=== PATIENT | male | born 1970 | race Caucasian/White ===

== ENCOUNTER 2016-05-01 01:50 | Observation (INO) | payer SELFPAY ==
[2016-05-01 01:55] VITALS: BMI 29.2
[2016-05-01] MEDS ORDERED: HYDROmorphone 0.5 mg/0.5 ml ISec IVP STA (01:56)
[2016-05-01] MEDS ORDERED: Sodium Chloride 0.9% 1,000 ML IV STA (01:57)
--- NOTE | 2016-05-01 02:25 | ED PDOC ---
Lower Extremity Pain/Injury Time Seen by Provider: 05/01/16 01:54 Chief Complaint (Nursing): Lower Extremity Problem/Injury Chief Complaint (Provider): left ankle pain deformity History Per: Patient, EMS History/Exam Limitations: no limitations Onset/Duration Of Symptoms: Hrs (1) Current Symptoms Are (Timing): Still Present Severity: Severe Pain Scale Rating Of: 10 Additional Complaint(s): Patient is a 45 yo male with no sig PMHx c/o acute left ankle pain after he rolled ankle and fell while doing pull ups. He applied his own Ortho boot from contralateral ankle that he had from previous injury. On arrival patient is in 10/10 pain to right ankle. - Hip Description Of Injury: Fell - Ankle/Foot Description Of Injury: Fell Currently Unable To: Bear Weight Past Medical History Reviewed: Historical Data, Nursing Documentation, Vital Signs Vital Signs: Last Vital Signs Temp 98.9 F 05/01/16 02:07 Pulse 121 H 05/01/16 02:07 Resp 14 05/01/16 02:07 BP 120/74 05/01/16 02:07 Pulse Ox 98 05/01/16 02:07 - Medical History PMH: Anxiety, COPD (from 10/18 work), Fractures (left ankle) Denies: Chronic Kidney Disease - Surgical History Surgical History: Cholecystectomy, Tonsillectomy - Family History Family History: States: CAD - Living Arrangements Living Arrangements: Alone - Social History Current smoker - smoking cessation education provided: No Ex-Smoker (has not smoked in the last 12 months): No Alcohol: None Drugs: Denies - Home Medications Home Medications: Ambulatory Orders Medication Instructions Recorded Azithromycin [Zithromax Z-Usama] 250 mg PO DAILY #6 tab 11/13/13 LORazepam [Ativan] 1 mg PO BID PRN #18 tab 01/29/14 Doxycycline Hyclate [Doxycycline] 100 mg PO BID #14 cap 04/19/14 Oxycodone HCl/Acetaminophen 1 tab PO Q4 PRN #15 tab 04/19/14 [Percocet 325 mg-5 mg] Ibuprofen [Motrin] 600 mg PO Q8 #30 tab 10/21/14 Oxycodone HCl/Acetaminophen 1 tab PO Q6 PRN #10 tab 10/21/14 [Percocet 325 mg-5 mg] Cyclobenzaprine HCl [Flexeril] 10 mg PO Q8 #15 tab 10/11/15 Naproxen [Naprosyn] 500 mg PO BID #20 tab 11/17/14 Naproxen 500 mg PO BID #20 tab 07/08/15 traMADol [Ultram] 50 mg PO Q6 #12 tab 05/01/16 - Allergies Allergies/Adverse Reactions: Allergies Allergy/AdvReac Type Severity Reaction Status Date / Time No Known Allergies Allergy Verified 07/08/15 22:16 Review of Systems ROS Statement: Except As Marked, All Systems Reviewed And Found Negative Musculoskeletal: Positive for: Foot Pain Physical Exam - Reviewed Nursing Documentation Reviewed: Yes Vital Signs Reviewed: Yes - Physical Exam Appears: Positive for: Uncomfortable Head Exam: Positive for: ATRAUMATIC, NORMOCEPHALIC Skin: Positive for: Normal Color, Warm, Dry Eye Exam: Positive for: Normal appearance, EOMI, PERRL Neck: Positive for: Normal, Painless ROM, Supple Cardiovascular/Chest: Positive for: Regular Rate, Rhythm. Negative for: Edema, JVD Respiratory: Positive for: Normal Breath Sounds. Negative for: Crackles, Rales , Wheezing Gastrointestinal/Abdominal: Positive for: Normal Exam, Bowel Sounds, Soft. Negative for: Tenderness Extremity: Positive for: Tenderness, Pedal Edema (left ankle is visibly deformed through Ortho boot straps; on removal pt noted to have sig malleolar edema and tenderness. Pt has 2+ DP pulses and cap refill <2 seconds to digits of left foot), Other (left infra-patellar abrasion noted) Neurologic/Psych: Positive for: Alert, Oriented. Negative for: Motor/Sensory Deficits - Laboratory Results Result Diagrams: 05/01/16 02:52 05/01/16 02:52 - ECG O2 Sat by Pulse Oximetry: 98 - Critical Care Total Time (In Min): 60 Medical Decision Making Medical Decision Makin yo male with acute ankle deformity Labs, Xray, IV Dilaudid ordered Podiatry consulted Xray Left Ankle shows distal fibular and lateral malleolar fracture with misalignment Podiatry consultation called; pt evaluated by Dr Schuler who has arranged for closed reduction with Dr Robbins (Podiatric Chief) Labs reviewed no clinically significant abnormalities Informed consent obtained by provider for moderate sedation; please refer to sedation documentation Provider supervised Podiatry residents reduction of ankle fracture and repeat Xrays showed improved joint alignment At 7AM pt is AAO x3 and po tolerant. Crutch ambulation instruction ordered prior to discharge DX Left Ankle Fracture Stable Pt provided instructions to f/u Dr Ronquillo for OR repair next week, RX Ultram Disposition - Clinical Impression Clinical Impression: Ankle fracture - Patient ED Disposition Is Patient to be Admitted: No - Disposition Disposition: Routine/Home Disposition Time: 03:10 Condition: FAIR ED Procedural Sedation - Pre Anesthesia Assessment Chief Complaint: Lower Extremity Problem/Injury Past Medical History: Medications Reviewed, Allergies Reviewed, Record Review Previous Surgies: Reviewed Family History/Social History: Reviewed - Physical Exam/Review of Systems Vital Signs Reviewed: Yes Cardiovascular: Regular Rate and Rhythm, Normal S1, S2 Respiratory/Chest: Clear to Auscultation Neurological: GCS=15 Mental Status: Alert and Oriented X 3 - Pre-Procedure Airway Assessment ASA Criteria: 1 - Healthy, normal. 2 - Mild systemic disease (No functional limitations, mildline obesity, DM withot complications, Hypertention). 3 - Severe systemic disease (Some functional limitation, stable angina, morbid obesity, controlled COPD/Asthma/CHF). 4 - Sever systemic disease constant threat to life (Unstable angina, active symptoms of COPD/Asthma, CHF/ Hypertension. 5 - Moribund - Intra-Procedure (Medications) Medications Given: Discontinued Medications Hydromorphone HCl (Dilaudid) 1 mg IVP STAT STA Stop: 05/01/16 01:57 Hydromorphone HCl (Dilaudid) Confirm Administered Dose 2 mg .ROUTE .STK-MED ONE Stop: 05/01/16 01:57 Hydromorphone HCl (Dilaudid) 1 mg IVP STAT STA Stop: 05/01/16 02:17 Last Admin: 05/01/16 02:20 Dose: 1 MG MAR Pain Assessment Document 05/01/16 02:20 WJ (Rec: 05/01/16 02:21 WJ [id number]) Pain Reassessment Is this a pain reassessment? Yes Sleep Is patient sleeping during reassessment? No Presence of Pain Presence of Pain Yes Pain Scale Used Pain Scale Used Numeric Location Left, Right or Bilateral Left Pain Location Body Site Ankle Description Description Constant IVP Administration Document 05/01/16 02:20 WJ (Rec: 05/01/16 02:21 WJ [id number]) Charges for Administration # of IVP Administrations 1 Hydromorphone HCl (Dilaudid) Confirm Administered Dose 2 mg .ROUTE .STK-MED ONE Stop: 05/01/16 02:20 Sodium Chloride (Sodium Chloride 0.9%) 1,000 mls @ 1,000 mls/hr IV .Q1H STA Stop: 05/01/16 02:56 Last Admin: 05/01/16 02:21 Dose: 1,000 MLS/HR eMAR Start Stop Document 05/01/16 02:21 W (Rec: 05/01/16 02:21 W [email or web address]) Intravenous Solution Start Date 05/01/16 Start Time 02:21 End Date 05/01/16 End time 05:00 Total Infusion Time 159 Midazolam HCl (Versed Inj) 10 mg IV ONCE ONE Stop: 05/01/16 03:21 Tetanus/Reduced Diphtheria/Acell Pertussis (Boostrix Vaccine Inj) 0.5 ml IM .ONCE ONE Stop: 05/01/16 03:02 Last Admin: 05/01/16 03:51 Dose: 0.5 ML MAR Immunization Data Document 05/01/16 03:51 W (Rec: 05/01/16 03:55 W [email or web address]) Immunization Data Opt out of sending immunization data to No respository? Suppress immunization data to other No providers from registry? Vaccine Eligibility Yes Vaccine Eligibility Date 05/01/16 Vaccine Information Sheet Given Yes Informed Consent Given Yes Vaccine Lot Number [id number] Vaccine Expiration Date 04/27/18 Site Given Left Deltoid Route Intramuscular Immunization Units ml Tetanus/Reduced Diphtheria/Acell Pertussis (Adacel) Confirm Administered Dose 0.5 ml IM .STK-MED ONE Stop: 05/01/16 03:46 Prod Sedation INTRA-PROCEDURE - Medications Medications Given: Discontinued Medications Hydromorphone HCl (Dilaudid) 1 mg IVP STAT STA Stop: 05/01/16 01:57 Hydromorphone HCl (Dilaudid) Confirm Administered Dose 2 mg .ROUTE .STK-MED ONE Stop: 05/01/16 01:57 Hydromorphone HCl (Dilaudid) 1 mg IVP STAT STA Stop: 05/01/16 02:17 Last Admin: 05/01/16 02:20 Dose: 1 MG MAR Pain Assessment Document 05/01/16 02:20 WJ (Rec: 05/01/16 02:21 W [email or web address]) Pain Reassessment Is this a pain reassessment? Yes Sleep Is patient sleeping during reassessment? No Presence of Pain Presence of Pain Yes Pain Scale Used Pain Scale Used Numeric Location Left, Right or Bilateral Left Pain Location Body Site Ankle Description Description Constant IVP Administration Document 05/01/16 02:20 W (Rec: 05/01/16 02:21 [id number] Charges for Administration # of IVP Administrations 1 Hydromorphone HCl (Dilaudid) Confirm Administered Dose 2 mg .ROUTE .STK-MED ONE Stop: 05/01/16 02:20 Sodium Chloride (Sodium Chloride 0.9%) 1,000 mls @ 1,000 mls/hr IV .Q1H STA Stop: 05/01/16 02:56 Last Admin: 05/01/16 02:21 Dose: 1,000 MLS/HR eMAR Start Stop Document 05/01/16 02:21 W (Rec: 05/01/16 02:21 [email or web address] [id number] Intravenous Solution Start Date 05/01/16 Start Time 02:21 End Date 05/01/16 End time 05:00 Total Infusion Time 159 Midazolam HCl (Versed Inj) 10 mg IV ONCE ONE Stop: 05/01/16 03:21 Tetanus/Reduced Diphtheria/Acell Pertussis (Boostrix Vaccine Inj) 0.5 ml IM .ONCE ONE Stop: 05/01/16 03:02 Last Admin: 05/01/16 03:51 Dose: 0.5 ML MAR Immunization Data Document 05/01/16 03:51 W (Rec: 05/01/16 03:55 [place] [id number]) Immunization Data Opt out of sending immunization data to No respository? Suppress immunization data to other No providers from registry? Vaccine Eligibility Yes Vaccine Eligibility Date 05/01/16 Vaccine Information Sheet Given Yes Informed Consent Given Yes Vaccine Lot Number [id number] Vaccine Expiration Date 04/27/18 Site Given Left Deltoid Route Intramuscular Immunization Units ml Tetanus/Reduced Diphtheria/Acell Pertussis (Adacel) Confirm Administered Dose 0.5 ml IM .STK-MED ONE Stop: 05/01/16 03:46 Vital Signs: 4:30AM Pt placed on ET CO2 monitor and given 4mg and additional 6mg IV Versed for moderate procedural sedation prior to closed reduction performed by Podiatry S[facility]. Posterior splint subsequently applied by Podiatry service. Pt tolerated procedure well.
[2016-05-01 02:55] LABS: BASO % 0.3 % (0.0-2.0); HEMATOCRIT 44.3 % (35.0-51.0); LYMPH # 1.2 K/uL (1.0-4.3); LYMPH % 10.1 % (20.0-40.0); MEAN CELL VOLUME 90.7 fl (80.0-94.0); MEAN CORPUSCULAR HEMOGLOBIN 29.7 pg (27.0-31.0); MEAN CORPUSCULAR HGB CONC 32.7 g/dL (33.0-37.0); MEAN PLATELET VOLUME 9.1 fl (7.2-11.7); MONO # 0.6 K/uL (0.0-0.8); NEUT # 9.9 K/uL (1.8-7.0); NEUT % 84.6 % (50.0-75.0); NRBC % 0.1 % (0.0-0.0); WHITE BLOOD COUNT 11.7 K/uL (4.8-10.8)
[2016-05-01] MEDS ORDERED: TDAP Vaccine 0.5 mL Syr IM ONE (03:01)
[2016-05-01 03:03] LABS: ALB/GLOB RATIO 1.8 (1.0-2.1); ALCOHOL SERUM < 10 mg/dl (0-10); ALKALINE PHOSPHATASE 72 U/L (38-126); ALT/SGPT 59 U/L (21-72); AST/SGOT 55 U/L (17-59); BILIRUBIN,TOTAL 0.5 mg/dl (0.2-1.3); BLOOD UREA NITROGEN 15 mg/dl (9-20); CALCIUM 9.9 mg/dL (8.4-10.2); CARBON DIOXIDE 17 mmol/L (22-30); CHLORIDE 101 mmol/L (98-107); GFR AFRICAN-AMERICAN > 60; GLUCOSE,RANDOM 109 mg/dL (75-110); POTASSIUM 4.2 MMOL/L (3.6-5.0); SODIUM 141 mmol/l (132-148)
[2016-05-01] MEDS ORDERED: Midazolam 2 MG/2 ML VIAL IV ONE (03:20)
[2016-05-01 03:34] LABS: PARTIAL THROMBOPLASTIN TIME 24.7 SECONDS (23.3-32.5)
--- NOTE | 2016-05-01 03:36 | CP.PCM.CON ---
History of Present Illness - History of Present Illness History of Present Illness: 45 year old male with PMHx of gallbladder cancer was seen at bedside in the ED for left ankle pain. Patient states that tonight, around 1 am, he was doing pull-up and landed on a dumb-wolff and rolled his ankle. Patient states that he tried to walk and it felt like bones hitting his skin. His director [employer] is Dr. Ronquillo whom he saw this week for an injury on the contralateral ankle. He is currently on pain medication, and states he feels very sleepy, but relates pain when he accidently moves his left leg. He was brought in by ambulance. Past Patient History - Past Social History Alcohol: None Drugs: Denies - CARDIAC Hx Cardiac Disorders: No - PULMONARY Hx Chronic Obstructive Pulmonary Disease (COPD): Yes (from 10/18 work) - NEUROLOGICAL Hx Neurological Disorder: No - HEENT Hx HEENT Problems: No - RENAL Hx Chronic Kidney Disease: No - ENDOCRINE/METABOLIC Hx Endocrine Disorders: No - HEMATOLOGICAL/ONCOLOGICAL Hx Cancer: Yes (gall bladder) Other/Comment: Cancer of gall bladder - INTEGUMENTARY Hx Dermatological Problems: No - MUSCULOSKELETAL/RHEUMATOLOGICAL Hx Fractures: Yes (left ankle) - GASTROINTESTINAL Hx Gastrointestinal Disorders: No - GENITOURINARY/GYNECOLOGICAL Hx Genitourinary Disorders: No - PSYCHIATRIC Hx Anxiety: Yes - SURGICAL HISTORY Hx Cholecystectomy: Yes Hx Tonsillectomy: Yes - ANESTHESIA Hx Anesthesia: Yes Hx Anesthesia Reactions: No Meds Home Medications: Home Medication List Medication Instructions Recorded Confirmed Type traMADol [Ultram] 50 mg PO Q6 #12 tab 05/01/16 Rx Allergies/Adverse Reactions: Allergies Allergy/AdvReac Type Severity Reaction Status Date / Time No Known Allergies Allergy Verified 07/08/15 22:16 Physical Exam - Constitutional Additional comments: uncomfortable - Extremities Exam Additional comments: Vasc: DP and PT pulses palpable on the right. DP pulse palpable and PT pulse non -palpable on the left due to non-pitting edema. CFT < 3 seconds to all digits b /l. Pedal hair growth noted b/l. Neuro: Gross sensation intact b/l. Ortho:Pain on palpation to medial malleolus, lateral malleolus, and ankle circumstantially. Derm:Non-pitting edema noted to left lower extremity from the calf to the digits. Ecchymosis noted to the medial malleolus. No open lesions noted - Neurological Exam Neurological exam: Alert, Oriented x3 - Psychiatric Exam Psychiatric exam: Normal Affect, Normal Mood Results - Vital Signs Recent Vital Signs: Last Vital Signs Temp 98.9 F 05/01/16 02:07 Pulse 121 H 05/01/16 02:07 Resp 14 05/01/16 02:07 BP 120/74 05/01/16 02:07 Pulse Ox 98 05/01/16 02:30 - Labs Result Diagrams: 05/01/16 02:52 05/01/16 02:52 Assessment & Plan - Assessment and Plan (Free Text) Assessment: 45 year old male with left ankle fracture Plan: Patient examined and evaluated Chart, labs, vitals reviewed Discussed in detail with attending, Dr. Ronquillo. Radiographs reviewed- high Fibular fracture, avulsion of the medial malleolus, syndesmotic injury noted Discussed with patient closed reduction procedure. Also discussed that patient will need surgery for the injury and will need to follow up with Dr. Ronquillo as outpatient. Consent for sedation obtained by ED attending, consent for closed reduction obtained and in chart, fiance present. Neurovascular status intact to LLE. Closed reduction was obtained to LLE and a well padded AO splint was applied after proper reduction was confirmed radiographically. Patient tolerated procedure well. Patient to ice and elevated LLE Patient to remain non-WB to LLE with dressing intact until follow up Pain medication per ED attending Discussed with patient and fiance that if he has pain out of proportion to call the podiatry pager and come to the ED Explained plan in detial with both patient and fiance, they verbalized understand. He understand that surgical intervention is necessary. Patient to follow up with Dr. Ronquillo in office this week
[2016-05-01 04:46] VITALS: TEMP 98.1
--- NOTE | 2016-05-01 08:28 | RAD ---
HISTORY: post reduction COMPARISON: No prior FINDINGS: BONES: Status post closed reduction of distal fibular and medial malleolar fracture. Cast obscures bone detail. JOINTS: Normal. No osteoarthritis. SOFT TISSUE: Normal. OTHER FINDINGS: None . IMPRESSION: Status post closed reduction of distal fibular and medial malleolar fracture. Cast obscures bone detail.
--- NOTE | 2016-05-01 08:28 | RAD ---
HISTORY: post reduction COMPARISON: No prior FINDINGS: BONES: Status post closed reduction of distal fibular and medial malleolar fracture in good anatomic alignment. Cast obscures bone detail. JOINTS: Normal. No osteoarthritis. SOFT TISSUE: Normal. OTHER FINDINGS: None . IMPRESSION: Status post closed reduction of distal fibular and medial malleolar fracture in good anatomic alignment. Cast obscures bone detail.
--- NOTE | 2016-05-01 08:29 | RAD ---
HISTORY: trauma COMPARISON: No prior FINDINGS: BONES: Distal fibular and medial malleolar fracture. JOINTS: Normal. No osteoarthritis. SOFT TISSUE: Normal. OTHER FINDINGS: None . IMPRESSION: Distal fibular and medial malleolar fracture.
[2016-05-01 09:16] VITALS: BP 116/70; PULSE 72; RESP 16
[2016-05-01 20:46] VITALS: O2SAT 98
== END 2016-05-01 08:20 | disposition home or self-care (01) ==
LOC: H.ER 01:50 → H.EROBSV 03:11
PROVIDERS: ADMIT Emergency Medicine; ATTEND Emergency Medicine
DX: S82.62XA Displaced fracture of lateral malleolus of left fibula, initial encounter for closed fracture (principal); W19.XXXA Unspecified fall, initial encounter; Y93.9 Activity, unspecified; Y92.9 Unspecified place or not applicable; Y99.9 Unspecified external cause status; Z85.09 Personal history of malignant neoplasm of other digestive organs; J44.9 Chronic obstructive pulmonary disease, unspecified; F41.9 Anxiety disorder, unspecified; Z90.49 Acquired absence of other specified parts of digestive tract; Z23 Encounter for immunization
CPT/HCPCS: 27762; 27788; 73590; 73600; 73620; 80053; 85025; 85610; 85730; 90471; 90715; 94770; 96361; 96374; 96375; 99284; G0378; G0480; J1170; J2250; J7040

== ENCOUNTER 2017-05-23 20:59 | Emergency (ER) | payer BC, OTHER ==
[2017-05-23 21:00] VITALS: BMI 29.2
[2017-05-23 21:09] VITALS: BP 111/74; PULSE 79; RESP 16; TEMP 98.7; O2SAT 99
--- NOTE | 2017-05-23 21:52 | ED PDOC ---
Lower Extremity Pain/Injury Time Seen by Provider: 05/23/17 21:13 Chief Complaint (Nursing): Lower Extremity Problem/Injury Chief Complaint (Provider): Lower Extremity Problem/Injury History Per: Patient History/Exam Limitations: no limitations Additional Complaint(s): Patient reports R ankle pain, swelling and redness. Patient reports feeling feverish a few days ago, but did not take his temperature. Denies any fever today or yesterday. Reports having prior injury to the left ankle that required surgery. Denies history of gout. Otherwise: (-) decreased ROM, (-)numbness, (- ) knee pain, (-) other injury. Patient is requesting for an MRI of his R ankle. PMD: Yaya Garcia MD Past Medical History Reviewed: Historical Data, Nursing Documentation, Vital Signs Vital Signs: Last Vital Signs Temp 98.7 F 05/23/17 21:05 Pulse 79 05/23/17 21:05 Resp 16 05/23/17 21:05 BP 111/74 05/23/17 21:05 Pulse Ox 99 05/23/17 21:05 - Medical History PMH: Anxiety, COPD (from 10/18 work), Fractures (left ankle) Denies: Chronic Kidney Disease - Surgical History Surgical History: Cholecystectomy, Tonsillectomy - Family History Family History: States: CAD - Home Medications Home Medications: Ambulatory Orders Medication Instructions Recorded Azithromycin [Zithromax Z-Usama] 250 mg PO DAILY #6 tab 11/13/13 LORazepam [Ativan] 1 mg PO BID PRN #18 tab 01/29/14 Doxycycline Hyclate [Doxycycline] 100 mg PO BID #14 cap 04/19/14 Oxycodone HCl/Acetaminophen 1 tab PO Q4 PRN #15 tab 04/19/14 [Percocet 325 mg-5 mg] Ibuprofen [Motrin] 600 mg PO Q8 #30 tab 10/21/14 Oxycodone HCl/Acetaminophen 1 tab PO Q6 PRN #10 tab 10/21/14 [Percocet 325 mg-5 mg] Cyclobenzaprine HCl [Flexeril] 10 mg PO Q8 #15 tab 11/17/14 Naproxen [Naprosyn] 500 mg PO BID #20 tab 11/17/14 Naproxen 500 mg PO BID #20 tab 07/08/15 traMADol [Ultram] 50 mg PO Q6 #12 tab 05/01/16 Cephalexin [Keflex] 500 mg PO Q6 #28 capsule 05/23/17 Indomethacin [Indocin] 50 mg PO TID PRN #15 cap 05/23/17 - Allergies Allergies/Adverse Reactions: Allergies Allergy/AdvReac Type Severity Reaction Status Date / Time No Known Allergies Allergy Verified 05/23/17 21:05 Review of Systems ROS Statement: Except As Marked, All Systems Reviewed And Found Negative (As per HPI, otherwise negative) Musculoskeletal: Positive for: Other (Ankle pain, swelling and redness) Physical Exam - Reviewed Nursing Documentation Reviewed: Yes Vital Signs Reviewed: Yes - Physical Exam Comments: GENERAL APPEARANCE: Patient is awake, alert, oriented x 3, in no acute distress. Patient observed freely moving his R ankle and foot, without any discomfort. SKIN: Warm, dry; (-) cyanosis. LOWER EXTREMITY: Ankle: (+) swelling, tenderness, warm to touch, with noted erythema. (+) full range of motion. Achilles tendon intact and nontender. Foot : (-) injury, (-) tender. CARDIOVASCULAR: (+) distal pulse. NEUROLOGIC: (+) distal sensation. - ECG O2 Sat by Pulse Oximetry: 99 (RA) Pulse Ox Interpretation: Normal Medical Decision Making Medical Decision Making: Time: 21:36 Plan: Right Ankle X-ray Keflex po Indocin po Case discussed with the pod resident Dr. Iesha Zavala, she agrees with current plan and treatment. Patient advised that an MRI is not clinically indicated at this time. XR right ankle: +soft tissue swelling to the posterior ankle, no fracture, no dislocation, as read by PA Patient advised that official radiology read of XR is still pending and will call the patient if there is any discrepancy within 24 hours. On reevaluation, the patient is sitting comfortably in the chair in no acute distress. Patient freely moving his right ankle and foot. X-ray results discussed with the patient in great detail. He is requesting for copies of his XR today. Patient provided with a copy on a CD. Diagnosis possible arthritis, consider gout versus infection discussed with the patient in great detail. Advised to follow-up with his dressmaker garment fitter. Patient states that he has a private dressmaker garment fitter and he intends to follow up regarding his symptoms. Based on history, exam and diagnostic results plan will be for outpatient follow-up with dressmaker garment fitter. Advised to follow up with your dressmaker garment fitter in 1-2 days without fail. Advised to take medication as prescribed. Rest, ice and elevate, wear riri wrap. Return to the emergency room at any time for any new or worsening symptoms. Patient states he fully agrees with and understands discharge instructions. States that he agrees with the plan and disposition. Verbalized and repeated discharge instructions and plan. I have given the patient opportunity to ask any additional questions. Scribe Attestation: Documented by Arlette Jacob acting as a scribe for PA. BETH Wood PA-C Scribe Attestation: All medical record entries made by the Scribe were at my direction and personally dictated by me. I have reviewed the chart and agree that the record accurately reflects my personal performance of the history, physical exam, medical decision making, and the department course for this patient. I have also personally directed, reviewed, and agree with the discharge instructions and disposition. Disposition - Clinical Impression Clinical Impression: Right ankle pain - Patient ED Disposition Is Patient to be Admitted: No Counseled Patient/Family Regarding: Studies Performed, Diagnosis, Need For Followup, Rx Given - Disposition Disposition: Routine/Home Disposition Time: 22:30 Condition: STABLE Additional Instructions: Thank you for letting us take care of you today. You were treated for right ankle pain, consider arthritis versus gout versus infection. The emergency medical care you received today was directed at your acute symptoms. Rest, ice and elevate your R ankle, continue to wear riri wrap for comfort and support. If you were prescribed any medication, please fill it and take as directed. It may take several days for your symptoms to resolve. Return to the Emergency Department if your symptoms worsen, do not improve, or if you have any other problems. Please contact your foot doctor in 2 days for re-evaluation and follow up. Bring any paperwork you were given at discharge with you along with any medications you are taking to your follow up visit. Our treatment cannot replace ongoing medical care by a primary care provider (PCP) outside of the emergency department. Thank you for allowing the [facility] team to be part of your care today. If you had an X-Ray : A Radiologist will review the ED reading if any change in treatment is needed we will contact you. Prescriptions: Cephalexin [Keflex] 500 mg PO Q6 #28 capsule Indomethacin [Indocin] 50 mg PO TID PRN #15 cap PRN Reason: Pain, Moderate (4-7) Instructions: Gout, Osteoarthritis (DC) Forms: [facility] (Khmer), [facility] ED School/Work Excuse - PA / SERVICE TECH / Resident Statement MD/DO has reviewed & agrees with the documentation as recorded.
--- NOTE | 2017-05-24 13:28 | RAD ---
PROCEDURE: Right Ankle Radiographs. HISTORY: Posttraumatic right lower extremity pain COMPARISON: None FINDINGS: BONES: Normal. No fracture. JOINTS: Normal. No osteoarthritis. Ankle mortise maintained. Talar dome intact SOFT TISSUES: Normal. OTHER FINDINGS: None. IMPRESSION: Normal right ankle radiographs.
== END 2017-05-23 23:00 | disposition home or self-care (01) ==
LOC: H.ER 20:59
DX: M25.571 Pain in right ankle and joints of right foot (principal); J44.9 Chronic obstructive pulmonary disease, unspecified; Z82.49 Family history of ischemic heart disease and other diseases of the circulatory system

== ENCOUNTER 2017-06-06 22:03 | Emergency (ER) | payer OTHER ==
[2017-06-06 22:03] VITALS: BMI 29.2
[2017-06-06 22:11] VITALS: BP 120/71; PULSE 80; RESP 18; TEMP 99.6; O2SAT 100
--- NOTE | 2017-06-06 23:49 | ED PDOC ---
Lower Extremity Pain/Injury Time Seen by Provider: 06/06/17 22:35 Chief Complaint (Nursing): Lower Extremity Problem/Injury History Per: Patient History/Exam Limitations: no limitations Additional Complaint(s): 46-year-old male presents to the emergency room complaining of bilateral knee pain and left ankle pain when he fell 4 days ago and sustained a twisting injury to his left ankle. Patient reports that he has been applying ice and elevating both his knees and his left ankle without improvement of his symptoms prompting ER visit. Reports no numbness, other injury, fever, other joint pain. Has no additional complaints or other injuries. Of note patient has had prior surgery to his left ankle. Past Medical History Vital Signs: Last Vital Signs Temp 99.6 F 06/06/17 22:09 Pulse 80 06/06/17 22:09 Resp 18 06/06/17 22:09 BP 120/71 06/06/17 22:09 Pulse Ox 100 06/06/17 22:09 - Medical History PMH: Anxiety, COPD (from 10/18 work), Fractures (left ankle) Denies: Chronic Kidney Disease - Surgical History Surgical History: Cholecystectomy, Tonsillectomy - Family History Family History: States: CAD - Home Medications Home Medications: Ambulatory Orders Medication Instructions Recorded Azithromycin [Zithromax Z-Usama] 250 mg PO DAILY #6 tab 11/13/13 LORazepam [Ativan] 1 mg PO BID PRN #18 tab 01/29/14 Doxycycline Hyclate [Doxycycline] 100 mg PO BID #14 cap 04/19/14 Oxycodone HCl/Acetaminophen 1 tab PO Q4 PRN #15 tab 04/19/14 [Percocet 325 mg-5 mg] Ibuprofen [Motrin] 600 mg PO Q8 #30 tab 10/21/14 Oxycodone HCl/Acetaminophen 1 tab PO Q6 PRN #10 tab 10/21/14 [Percocet 325 mg-5 mg] Cyclobenzaprine HCl [Flexeril] 10 mg PO Q8 #15 tab 11/17/14 Naproxen [Naprosyn] 500 mg PO BID #20 tab 11/17/14 Naproxen 500 mg PO BID #20 tab 07/08/15 traMADol [Ultram] 50 mg PO Q6 #12 tab 05/01/16 Cephalexin [Keflex] 500 mg PO Q6 #28 capsule 05/23/17 Indomethacin [Indocin] 50 mg PO TID PRN #15 cap 05/23/17 Meloxicam [Mobic] 15 mg PO DAILY PRN #20 tab 06/06/17 - Allergies Allergies/Adverse Reactions: Allergies Allergy/AdvReac Type Severity Reaction Status Date / Time No Known Allergies Allergy Verified 05/23/17 21:05 Review of Systems Constitutional: Negative for: Fever, Malaise Musculoskeletal: Positive for: Other (knee and ankle pain). Negative for: Neck Pain, Back Pain Skin: Negative for: Rash, Lesions Physical Exam - Physical Exam Comments: GENERAL APPEARANCE: Patient is awake, alert, oriented x 3, in mild painful distress. SKIN: Warm, dry; (-) cyanosis. LOWER EXTREMITY: B/L knees: Mild tenderness of b/l knees with no effusion. Able to extend actively to 0 degrees; (-) instability on valgus or varus stress. Drawer sign (-). (-) distal neurovascular deficit. 2 point discrimination. L ankle: (+) mild swelling, tenderness of the medial aspect of the ankle; (+) mild swelling and tenderness of the lateral ankle; (+) limited range of motion secondary to pain. Achilles tendon intact and nontender. Hip, thigh, leg and foot: (-) tenderness or limitation of motion. CARDIOVASCULAR: (+) distal pulse. NEUROLOGIC: (+) distal sensation. - ECG O2 Sat by Pulse Oximetry: 100 Medical Decision Making Medical Decision Making: Plan : - XR b/l knees - XR L ankle - Toradol IM XR bilateral knees: Soft tissue swelling noted to both knee joints, no fracture , no dislocation, as read by PA XR left ankle: Noted hardware screws, mild DJD, mild soft tissue swelling, no fracture, no dislocation, as read by PA Patient advised that official radiology read of XR is still pending and will call the patient if there is any discrepancy within 24 hours. X-ray results reviewed with her diet to resident Dr. Santos, she sees no acute fracture especially to the left ankle. She recommends outpatient follow-up with patient's private chemical inspector. X-ray results discussed with the patient in great detail. Recommended ice treatment at home. Harris wrap applied to bilateral knees and left ankle. Advised to follow up with private chemical inspector in 1-2 days without fail. Advised to take medication as prescribed. Return to the emergency room at any time for any new or worsening symptoms. Patient states he fully agrees with and understands discharge instructions. States that he agrees with the plan and disposition. Verbalized and repeated discharge instructions and plan. I have given the patient opportunity to ask any additional questions. Disposition - Clinical Impression Clinical Impression: Knee pain, Ankle sprain - Patient ED Disposition Is Patient to be Admitted: No Counseled Patient/Family Regarding: Studies Performed, Diagnosis, Need For Followup - Disposition Referrals: Edu Soriano III, MD [Staff Provider] - Disposition: Routine/Home Disposition Time: 00:00 Condition: STABLE Additional Instructions: Thank you for letting us take care of you today. You were treated for bilateral knee contusion, left ankle sprain. The emergency medical care you received today was directed at your acute symptoms. Rest, ice and elevate, wear harris wrap for comfort. It may take several days for your symptoms to resolve. Return to the Emergency Department if your symptoms worsen, do not improve, or if you have any other problems. Please contact your chemical inspector in 2 days for re-evaluation and follow up. Bring any paperwork you were given at discharge with you along with any medications you are taking to your follow up visit. Our treatment cannot replace ongoing medical care by a primary care provider (PCP) outside of the emergency department. Thank you for allowing the [facility] team to be part of your care today. If you had an X-Ray : A Radiologist will review the ED reading if any change in treatment is needed we will contact you. Prescriptions: Meloxicam [Mobic] 15 mg PO DAILY PRN #20 tab PRN Reason: Pain, Moderate (4-7) Instructions: Ankle Sprain (DC), Knee Pain (DC), Contusion (DC) - PA / BOOK JOGGER / Resident Statement MD/DO has reviewed & agrees with the documentation as recorded.
[2017-06-06] MEDS ORDERED: Oxycodone/Acetaminophen 5/325 mg Tab PO STA (23:57)
--- NOTE | 2017-06-07 08:58 | RAD ---
PROCEDURE: Bilateral Knee Radiographs. HISTORY: pain COMPARISON: None. FINDINGS: BONES: Right Knee: No acute fracture. Left Knee: No acute fracture. JOINTS: Right Knee: Unremarkable. Left knee: Unremarkable. SOFT TISSUES: Right Knee: Normal. Left Knee: Normal. JOINT EFFUSION: Right Knee: None. Left Knee: None. OTHER FINDINGS: None. IMPRESSION: No demonstrated fracture or dislocation.
--- NOTE | 2017-06-07 08:58 | RAD ---
PROCEDURE: Left Ankle Radiographs. HISTORY: pain COMPARISON: Left ankle radiographs dated 05/01/2016 FINDINGS: BONES: Prior open reduction internal placement of distal fibular fixation plate with syndesmotic screw and medial malleolar screw. Hardware intact. Small ossific fragments may represent heterotopic ossification versus avulsion fractures. JOINTS: Ankle mortise maintained. Talar dome intact SOFT TISSUES: Medial malleolar soft tissue swelling. Small ankle joint effusion. OTHER FINDINGS: None. IMPRESSION: Prior ORIF as described above. Small ossific fragments may represent heterotopic ossification versus avulsion fractures in the proper clinical setting. Clinical correlation is recommended. ER notification submitted electronically.
== END 2017-06-07 00:05 | disposition home or self-care (01) ==
LOC: H.ER 22:03
DX: S93.402A Sprain of unspecified ligament of left ankle, initial encounter (principal); M25.562 Pain in left knee; M25.561 Pain in right knee; W19.XXXA Unspecified fall, initial encounter; Z82.49 Family history of ischemic heart disease and other diseases of the circulatory system; J44.9 Chronic obstructive pulmonary disease, unspecified
CPT/HCPCS: 73560; 73610; 96372; 99285; J1885

== ENCOUNTER 2017-06-08 21:20 | Emergency (ER) | payer OTHER ==
[2017-06-08 21:21] VITALS: BMI 29.2
[2017-06-08 21:37] VITALS: BP 110/68; PULSE 69; RESP 16; TEMP 98.2; O2SAT 97
[2017-06-08] MEDS ORDERED: Oxycodone/Acetaminophen 5/325 mg Tab PO STA (21:47)
--- NOTE | 2017-06-08 22:27 | ED PDOC ---
Lower Extremity Pain/Injury Time Seen by Provider: 06/08/17 21:36 Chief Complaint (Nursing): Lower Extremity Problem/Injury History Per: Patient Additional Complaint(s): Pt. states he was in ED 2 days ago for a L ankle injury and was told to come in today for further imaging as there was a discrepancy in his x-ray. Pt. continues to have L ankle pain. Denies numbness, tingling. Past Medical History Reviewed: Historical Data, Nursing Documentation, Vital Signs Vital Signs: Last Vital Signs Temp 98.2 F 06/08/17 21:34 Pulse 69 06/08/17 21:34 Resp 16 06/08/17 21:34 BP 110/68 06/08/17 21:34 Pulse Ox 97 06/08/17 21:34 - Medical History PMH: Anxiety, COPD (from 10/18 work), Fractures (left ankle) Denies: Chronic Kidney Disease - Surgical History Surgical History: Cholecystectomy, Tonsillectomy - Family History Family History: States: CAD - Home Medications Home Medications: Ambulatory Orders Medication Instructions Recorded Azithromycin [Zithromax Z-Usama] 250 mg PO DAILY #6 tab 11/13/13 LORazepam [Ativan] 1 mg PO BID PRN #18 tab 01/29/14 Doxycycline Hyclate [Doxycycline] 100 mg PO BID #14 cap 04/19/14 Oxycodone HCl/Acetaminophen 1 tab PO Q4 PRN #15 tab 04/19/14 [Percocet 325 mg-5 mg] Ibuprofen [Motrin] 600 mg PO Q8 #30 tab 10/21/14 Oxycodone HCl/Acetaminophen 1 tab PO Q6 PRN #10 tab 10/21/14 [Percocet 325 mg-5 mg] Cyclobenzaprine HCl [Flexeril] 10 mg PO Q8 #15 tab 11/17/14 Naproxen [Naprosyn] 500 mg PO BID #20 tab 11/17/14 Naproxen 500 mg PO BID #20 tab 07/08/15 traMADol [Ultram] 50 mg PO Q6 #12 tab 05/01/16 Cephalexin [Keflex] 500 mg PO Q6 #28 capsule 05/23/17 Indomethacin [Indocin] 50 mg PO TID PRN #15 cap 05/23/17 Meloxicam [Mobic] 15 mg PO DAILY PRN #20 tab 06/06/17 oxyCODONE/Acetaminophen [Percocet 1 ea PO Q8 PRN #10 tab 06/08/17 5/325 mg Tab] - Allergies Allergies/Adverse Reactions: Allergies Allergy/AdvReac Type Severity Reaction Status Date / Time No Known Allergies Allergy Verified 06/08/17 21:34 Review of Systems ROS Statement: Except As Marked, All Systems Reviewed And Found Negative Physical Exam - Physical Exam Appears: Positive for: Well, Non-toxic, No Acute Distress Skin: Positive for: Normal Color, Warm. Negative for: Rash Pulses-Dorsalis Pedis (L): 2+ Pulses-Dorsalis Pedis (R): 2+ Extremity: Positive for: Other (L ankle on medial malleolus with swelling and tenderness) Neurologic/Psych: Positive for: Alert, Oriented - ECG O2 Sat by Pulse Oximetry: 97 - Progress ED Course And Treament: Percocet 2 tabs PO, CT L ankle/foot x-ray ordered. CT L ankle/foot w/o contrast: Soft tissue swelling at the ankle, a bulge in fracture from the medial talar neck cannot be excluded; old healed distal tibial and fibular fractures with orthopedic hardware in place Pt. evaluated by Roseanne, podiatry resident, who reviewed CT and spoke with Dr. Ronquillo. Outpt f/u arrangements made. Foot/ankle was immobilized in by Roseanne. Disposition - Clinical Impression Clinical Impression: Ankle fracture - Patient ED Disposition Is Patient to be Admitted: No - Disposition Referrals: Guero Ronquillo MD [Staff Provider] - Disposition: Routine/Home Disposition Time: 23:49 Condition: STABLE Additional Instructions: Follow up with Dr. Ronquillo as scheduled. Return to ED immediately if symptoms worsen. Prescriptions: oxyCODONE/Acetaminophen [Percocet 5/325 mg Tab] 1 ea PO Q8 PRN #10 tab PRN Reason: Pain Instructions: Ankle Fracture (DC) Forms: [employer] ([place]ran), [facility] ED School/Work Excuse Print Language: PORTUGUESE
--- NOTE | 2017-06-08 23:37 | CT ---
EXAM: CT Left Lower Extremity Without Intravenous Contrast EXAM DATE/TIME: 06/08/2017 9:47 PM CLINICAL HISTORY: 46 years old, male; Injury or trauma; Injury Injury in work; Work related; Initial encounter; Blunt trauma; Ankle and foot; Left; Prior surgery; Surgery date: 6+ months; Surgery type: Lt ankle FX. ; Additional info: Attention left ankle and foot TECHNIQUE: Axial computed tomography images of the left lower extremity without intravenous contrast. All CT scans at this facility use one or more dose reduction techniques, viz.: automated exposure control; ma/kV adjustment per patient size (including targeted exams where dose is matched to indication; i.e. head); or iterative reconstruction technique. Coronal and sagittal reformatted images were created and reviewed. COMPARISON: CR - ANKLE LEFT 3 VIEWS ROUTINE 2017-06-06 23:04 FINDINGS: Bones/joints: There are old healed distal tibial and fibular fractures. There is streak artifact from the sideplate and multiple screws in the distal fibula. There is streak artifact from screws in the distal tibia. There are postsurgical defect in the distal tibia and adjacent fibula from prior screw placement. There is streak artifact from a staple in the adjacent medial soft tissues. No acute tibial or fibular fractures are identified. There is dystrophic calcification posterior to the tibia. There is minimal dystrophic calcification in the region of the interosseous ligament.. There is minimal calcification in soft tissues anterior to the ankle joint. There is minimal cortical irregularity of the talar neck. There is small ossific fragments adjacent to the medial aspect. No focal abnormality is seen at the talonavicular articulation. Subtalar joints are maintained. Calcaneus is intact. No acute abnormalities are seen in the mid foot or hindfoot. Soft tissues: There is edema in the soft tissues at the left ankle. IMPRESSION: Soft tissue swelling at the ankle, a bulge in fracture from the medial talar neck cannot be excluded; old healed distal tibial and fibular fractures with orthopedic hardware in place
--- NOTE | 2017-06-08 23:40 | CP.PCM.CON ---
History of Present Illness - History of Present Illness History of Present Illness: 46 y/o male with PMHx of anxiety, COPD s/p 10/18 exposure and multiple injuries to L ankle seen in ED after consultation for L ankle pain. Pt is under Dr. Ronquillo's care and has a history of ankle ORIF and talus fractures to LLE. He states he came in yesterday to the ED as he recently sustained a new injury last week where his knees buckled and he inverted his ankle. He states he was sent home yesterday after his xrays came back negative, but was called in today after radiology indicated positive findings on the xray, warranting further imaging. States he is having pain on the inside of the ankle where he had screws put in approx 1 year ago after his fracture. States the pain also goes up from the inside of the ankle approx 5-6 cm. Admits to mild pain at the hardware sites on the inside and outside of the ankle, but states this is chronic. Admits to occasional tingling and numbness, more so on the inside of the ankle where he is currently having pain. States this is also chronic, but worsened since his injury last week. Has no other pedal complaints. Denies F/C/N /V/CP/SOB Review of Systems - Review of Systems All systems: reviewed and no additional remarkable complaints except (per HPI) Past Patient History - Past Social History Smoking Status: Never Smoked - CARDIAC Hx Cardiac Disorders: No - PULMONARY Hx Chronic Obstructive Pulmonary Disease (COPD): Yes (from 10/18 work) - NEUROLOGICAL Hx Neurological Disorder: No - HEENT Hx HEENT Problems: No - RENAL Hx Chronic Kidney Disease: No - ENDOCRINE/METABOLIC Hx Endocrine Disorders: No - HEMATOLOGICAL/ONCOLOGICAL Hx Cancer: Yes (gall bladder) Other/Comment: Cancer of gall bladder - INTEGUMENTARY Hx Dermatological Problems: No - MUSCULOSKELETAL/RHEUMATOLOGICAL Hx Fractures: Yes (left ankle) - GASTROINTESTINAL Hx Gastrointestinal Disorders: No - GENITOURINARY/GYNECOLOGICAL Hx Genitourinary Disorders: No - PSYCHIATRIC Hx Anxiety: Yes - SURGICAL HISTORY Hx Cholecystectomy: Yes Hx Tonsillectomy: Yes - ANESTHESIA Hx Anesthesia: Yes Hx Anesthesia Reactions: No Meds Home Medications: Home Medication List Medication Instructions Recorded Confirmed Type oxyCODONE/Acetaminophen [Percocet 1 ea PO Q8 PRN #10 tab 06/08/17 Rx 5/325 mg Tab] Allergies/Adverse Reactions: Allergies Allergy/AdvReac Type Severity Reaction Status Date / Time No Known Allergies Allergy Verified 06/08/17 21:34 Physical Exam - Constitutional Appears: Well, Non-toxic, No Acute Distress - Extremities Exam Additional comments: LLE focused exam: Vasc: DP/PT pulses palpable 2/4. Temperature gradient warm to cool. CFT < 3 sec to all digits. Mild localized perimalleolar edema noted Derm: Old surgical scars noted to medial malleolus and distal lateral fibula, fully healed. No open lesions, no erythema, no ecchymosis Neuro: Protective sensation grossly intact Ortho: Tenderness to deep palpation of medial malleolus at site of screw fixation. Mild tenderness along palpation of posterior tibial tendon at level of medial malleolus. Minimal pinpoint tenderness on palpation of lateral malleolus. Ankle joint ROM limited secondary to guarding. - Neurological Exam Neurological exam: Alert, Oriented x3 - Psychiatric Exam Psychiatric exam: Normal Affect, Normal Mood Results - Vital Signs Recent Vital Signs: Last Vital Signs Temp 98.2 F 06/08/17 21:34 Pulse 69 06/08/17 21:34 Resp 16 06/08/17 21:34 BP 110/68 06/08/17 21:34 Pulse Ox 97 06/08/17 22:29 Assessment & Plan - Assessment and Plan (Free Text) Assessment: 46 y/o male with left ankle injury secondary to trauma Plan: Pt seen and evaluated in ED Discussed with attending Dr. Ronquillo X-rays 06/06 of L ankle reveal ossicle vs avulsion fx of distal tibia at medial malleolus Left lower ext CT reveals a possible bulge in fx of medial talar neck, dystrophic calcifications posterior to tibia and in interosseous ligament, possible reactive bone growth at distal tibia at screw fixation site Pt placed in [place] compression and dispensed crutches Pt to ambulate in CAM boot at all times Pt advised to follow up with Dr. Ronquillo in his office for possible outpatient MRI to evaluate ligamentous and tendinous structures of rearfoot and ankle joints Thank you for this consult
== END 2017-06-08 23:49 | disposition home or self-care (01) ==
LOC: H.ER 21:20
DX: S99.912D Unspecified injury of left ankle, subsequent encounter (principal); J44.9 Chronic obstructive pulmonary disease, unspecified; Z82.49 Family history of ischemic heart disease and other diseases of the circulatory system; Z87.39 Personal history of other diseases of the musculoskeletal system and connective tissue

== ENCOUNTER 2017-09-20 21:57 | Inpatient (IN) | payer OTHER ==
[2017-09-20 21:58] VITALS: BMI 29.2
[2017-09-20] MEDS ORDERED: Oxycodone/Acetaminophen 5/325 mg Tab PO STA (22:44)
[2017-09-20 23:03] LABS: BASO % 0.4 % (0.0-2.0); EOS # 0.1 K/uL (0.0-0.7); EOS % 1.6 % (0.0-4.0); HEMOGLOBIN 16.3 g/dL (12.0-18.0); LYMPH # 1.4 K/uL (1.0-4.3); LYMPH % 16.3 % (20.0-40.0); MEAN CELL VOLUME 92.4 fl (80.0-94.0); MEAN CORPUSCULAR HEMOGLOBIN 30.9 pg (27.0-31.0); MEAN CORPUSCULAR HGB CONC 33.5 g/dL (33.0-37.0); MEAN PLATELET VOLUME 8.2 fl (7.2-11.7); MONO # 1.1 K/uL (0.0-0.8); NEUT # 5.7 K/uL (1.8-7.0); NEUT % 68.7 % (50.0-75.0); RBC 5.28 Mil/uL (4.40-5.90); WHITE BLOOD COUNT 8.3 K/uL (4.8-10.8)
[2017-09-20 23:09] LABS: VENOUS BLOOD GAS BASE EXCESS 2.8 mmol/L (0.0-2.0); VENOUS BLOOD GAS PCO2 47 mmHg (40-60); VENOUS BLOOD GAS PO2 34 mm/Hg (30-55); VENOUS BLOOD PH 7.39 (7.32-7.43)
[2017-09-20] MEDS ORDERED: Oxycodone/Acetaminophen 5/325 mg Tab ONE (23:10)
[2017-09-20 23:14] LABS: BLOOD UREA NITROGEN 18 mg/dl (9-20); CALCIUM 9.2 mg/dL (8.4-10.2); GFR AFRICAN-AMERICAN > 60; GFR NON-AFRICAN AMERICAN 55
--- NOTE | 2017-09-20 23:55 | ED PDOC ---
HPI: General Adult Time Seen by Provider: 09/20/17 22:24 Chief Complaint (Nursing): Fever History Per: Patient History/Exam Limitations: no limitations Onset/Duration Of Symptoms: Days Have you had recent travel within the past 21 days to any of the following countries: [place], [place], [place] or [place]?: No Current Symptoms Are (Timing): Still Present Additional Complaint(s): Hx of tibia/fibular fracture s/p repair with Dr. Ronquillo presenting with fever , states that Tuesday he had hardware removed from LLE and new hardware placed due to non-healing ligaments. Tuesday afternoon after the surgery he started to develop fever, has had it continuously since today to TMax of 105, associated with sweats and "halluncinations". Denies cough, runny nose, sore throat, nausea, vomiting, diarrhea. Patient states the lower extremity swelling has gotten better since the surgery. Past Medical History Reviewed: Historical Data, Nursing Documentation, Vital Signs Vital Signs: Last Vital Signs Temp 98.5 F 09/21/17 03:08 Pulse 80 09/21/17 03:08 Resp 18 09/21/17 03:08 BP 131/75 09/21/17 03:08 Pulse Ox 96 09/21/17 03:08 - Medical History PMH: Anxiety, COPD (from 10/18 work), Fractures (left ankle) Denies: Chronic Kidney Disease - Surgical History Surgical History: Cholecystectomy, Tonsillectomy - Family History Family History: States: CAD - Home Medications Home Medications: Ambulatory Orders Medication Instructions Recorded LORazepam [Ativan] 1 mg PO BID PRN #18 tab 01/29/14 Cyclobenzaprine HCl [Flexeril] 10 mg PO Q8 #15 tab 11/17/14 Naproxen [Naprosyn] 500 mg PO BID #20 tab 11/17/14 Cephalexin [Keflex] 500 mg PO Q6 #28 capsule 05/23/17 Oxycodone HCl/Acetaminophen 2 tab PO Q6 PRN 09/21/17 [Percocet 325 mg-5 mg] - Allergies Allergies/Adverse Reactions: Allergies Allergy/AdvReac Type Severity Reaction Status Date / Time No Known Allergies Allergy Verified 06/08/17 21:34 Review of Systems ROS Statement: Except As Marked, All Systems Reviewed And Found Negative Constitutional: Positive for: Fever, Chills, Sweats Physical Exam - Reviewed Nursing Documentation Reviewed: Yes Vital Signs Reviewed: Yes - Physical Exam Appears: Positive for: Well, Non-toxic, No Acute Distress Head Exam: Positive for: ATRAUMATIC, NORMAL INSPECTION, NORMOCEPHALIC Skin: Positive for: Normal Color, Warm, DRY Eye Exam: Positive for: EOMI, Normal appearance, PERRL ENT: Positive for: Normal ENT Inspection Neck: Positive for: Normal, Painless ROM Cardiovascular/Chest: Positive for: Regular Rate, Rhythm Respiratory: Positive for: CNT, Normal Breath Sounds Gastrointestinal/Abdominal: Positive for: Normal Exam, Soft. Negative for: Tenderness Back: Positive for: Normal Inspection Extremity: Positive for: Normal ROM, Other (LLE with mild swelling, well healing scars, no erythema/drainage, 2+ DP's) Neurologic/Psych: Positive for: Alert, Oriented - Laboratory Results Result Diagrams: 09/20/17 22:58 09/20/17 22:58 - ECG O2 Sat by Pulse Oximetry: 97 Pulse Ox Interpretation: Normal Medical Decision Making Medical Decision MakinPM A/P: Pt. w/ recent surgery presenting with fever and leg swelling -based on PE, site looks clean, well healing, unclear at this time if post-op wound infection -not concerned for DVT/PE at this time -will consult podiatry for further recs 1AM -Sepsis workup negative for source noni -Podiatry resident at bedside -Recommendation is to admit for pain control and further workup in the AM -Dr. Rudolph aware Disposition - Clinical Impression Clinical Impression: Fever - Patient ED Disposition Is Patient to be Admitted: No - Disposition Disposition Time: 01:00 Condition: FAIR
[2017-09-21] MEDS ORDERED: Sodium Chloride 0.9% 1,000 ML IV STA (00:54)
[2017-09-21 01:02] LABS: URINE BILIRUBIN NEGATIVE (NEGATIVE); URINE BLOOD MODERATE (NEGATIVE); URINE CLARITY CLEAR (Clear); URINE COLOR YELLOW (YELLOW); URINE GLUCOSE (UA) NEG (Normal); URINE LEUKOCYTE ESTERASE NEG Leu/uL (Negative); URINE PROTEIN NEGATIVE (NEGATIVE); URINE UROBILINOGEN 0.2-1.0 mg/dL (0.2-1.0)
--- NOTE | 2017-09-21 01:13 | CP.PCM.CON ---
History of Present Illness - History of Present Illness History of Present Illness: Podiatry consult note for attending Dr. Ronquillo: 47 y/o M patient seen and evaluated in ED for pain in his L ankle. Patient states that he had surgery last tuesday for removal of hardware from his left ankle at [facility] with Dr. Ronquillo. Patient states that since the surgery day he is having high fever 104-105 F that is not relieved by antipyretics. He states that he had pain 10/10 since the surgery day. Patient states that he used to take percocet 325/5 mg 2 tablets every 6 hours and that was helping him with the pain. He states that since Tuesday he started to take the percocet 1 tablet each 12 hours as he was afraid to ran out of the medication and also because it caused him constipation but that didn't help him with the pain. Patient states that he wasn't bear weight on his right foot and he was doing icing and elevation on regular basis. Patient states that he has continuous nausea but no vomiting. He also states that he is having body ache, chills and his appetite is lost in the last 5 days. Patient states that since he decreased the percocet dose his bowel motion became more regular and he passed stool and gases. PMH: Anxiety, COPD and gout PSH: Cholecystectomy, Tonsillectomy, B/L ankle surgeries and L knee surgery. Allergies: NKDA Social Hx: Denies smoking, ETOH or illicit drug use. Review of Systems - Review of Systems Review of Systems: As per HPI. Past Patient History - Past Social History Smoking Status: Never Smoked - CARDIAC Hx Cardiac Disorders: No - PULMONARY Hx Chronic Obstructive Pulmonary Disease (COPD): Yes (from 10/18 work) - NEUROLOGICAL Hx Neurological Disorder: No - HEENT Hx HEENT Problems: No - RENAL Hx Chronic Kidney Disease: No - ENDOCRINE/METABOLIC Hx Endocrine Disorders: No - HEMATOLOGICAL/ONCOLOGICAL Hx Cancer: Yes (gall bladder) Other/Comment: Cancer of gall bladder - INTEGUMENTARY Hx Dermatological Problems: No - MUSCULOSKELETAL/RHEUMATOLOGICAL Hx Fractures: Yes (left ankle) - GASTROINTESTINAL Hx Gastrointestinal Disorders: No - GENITOURINARY/GYNECOLOGICAL Hx Genitourinary Disorders: No - PSYCHIATRIC Hx Anxiety: Yes - SURGICAL HISTORY Hx Cholecystectomy: Yes Hx Tonsillectomy: Yes - ANESTHESIA Hx Anesthesia: Yes Hx Anesthesia Reactions: No Hx Malignant Hyperthermia: No Meds Allergies/Adverse Reactions: Allergies Allergy/AdvReac Type Severity Reaction Status Date / Time No Known Allergies Allergy Verified 06/08/17 21:34 - Medications Medications: Current Medications Sodium Chloride (Sodium Chloride 0.9%) 1,000 mls @ 1,000 mls/hr IV .Q1H STA Stop: 09/21/17 01:53 Last Admin: 09/21/17 01:00 Dose: 1,000 mls/hr Physical Exam - Head Exam Head Exam: ATRAUMATIC, NORMOCEPHALIC - Extremities Exam Additional comments: Left LE focused exam: Vasc: DP 2/4. PT couldn't be palpated because of the edema and guarding due to pain. Cap refill < 3 sec in all digits. Temp gradient warm to warm. moderate peimalleolar non pitting edema noted at the left ankle. Neuro: Protective and gross sensation are intact. Derm: 3 Linear wound of hardware removal surgery at the lateral side of the ankle and 2 smaller wounds at the medial side of the left ankle. Wounds are covered with steri strips Wounds are clean/ dry and intact. Sutures are intact and in place. Skin is perfectly coapted. No drainage or malodor. No erythema in the ezra-wound area. MSK: Pain on palpation of the perimalleolar area. Muscle power couldn;t be tested as the patient is guarding due to pain. Left foot and ankle joints ROM coudn't be tested due to pain. Dorsiflexion of the 1st MPJ didn't elicit any pain. - Neurological Exam Neurological exam: Alert, Oriented x3 - Psychiatric Exam Psychiatric exam: Normal Affect, Normal Mood Results - Vital Signs Recent Vital Signs: Last Vital Signs Temp 102.6 F H 09/20/17 22:15 Pulse 91 H 09/20/17 22:15 Resp 16 09/20/17 22:15 BP 136/82 09/20/17 22:15 Pulse Ox 97 09/20/17 23:58 - Labs Result Diagrams: 09/20/17 22:58 09/20/17 22:58 Labs: Laboratory Results - last 24 hr 09/20/17 09/20/17 09/20/17 22:58 22:58 23:03 WBC 8.3 RBC 5.28 Hgb 16.3 Hct 48.8 MCV 92.4 MCH 30.9 MCHC 33.5 RDW 14.0 Plt Count 247 MPV 8.2 Neut % (Auto) 68.7 Lymph % (Auto) 16.3 L [place] % (Auto) 13.0 H Eos % (Auto) 1.6 Baso % (Auto) 0.4 Neut # (Auto) 5.7 Lymph # (Auto) 1.4 [place] # (Auto) 1.1 H Eos # (Auto) 0.1 Baso # (Auto) 0.0 pO2 34 VBG pH 7.39 VBG pCO2 47 VBG HCO3 26.2 VBG Total CO2 29.9 H VBG O2 Sat (Calc) 66.5 H VBG Base Excess 2.8 H VBG Potassium 4.3 Glucose 95 Lactate 1.5 FiO2 21.0 Sodium 139 134.0 Potassium 4.4 Chloride 104 102.0 Carbon Dioxide 26 Anion Gap 13 BUN 18 Creatinine 1.4 Est GFR ( Amer) > 60 Est GFR (Non-Af Amer) 55 Random Glucose 101 Calcium 9.2 Venous Blood Potassium 4.3 Urine Color Urine Clarity Urine pH Ur Specific [place] Urine Protein Urine Glucose (UA) Urine Ketones Urine Blood Urine Nitrate Urine Bilirubin Urine Urobilinogen Ur Leukocyte Esterase Urine RBC (Auto) Urine Microscopic WBC 09/21/17 00:34 WBC RBC Hgb Hct MCV MCH MCHC RDW Plt Count MPV Neut % (Auto) Lymph % (Auto) [place] % (Auto) Eos % (Auto) Baso % (Auto) Neut # (Auto) Lymph # (Auto) [place] # (Auto) Eos # (Auto) Baso # (Auto) pO2 VBG pH VBG pCO2 VBG HCO3 VBG Total CO2 VBG O2 Sat (Calc) VBG Base Excess VBG Potassium Glucose Lactate FiO2 Sodium Potassium Chloride Carbon Dioxide Anion Gap BUN Creatinine Est GFR ( Amer) Est GFR (Non-Af Amer) Random Glucose Calcium Venous Blood Potassium Urine Color Yellow Urine Clarity Clear Urine pH 8.0 Ur Specific [place] 1.013 Urine Protein Negative Urine Glucose (UA) Neg Urine Ketones Negative Urine Blood Moderate Urine Nitrate Negative Urine Bilirubin Negative Urine Urobilinogen 0.2-1.0 Ur Leukocyte Esterase Neg Urine RBC (Auto) 1 Urine Microscopic WBC < 1 Assessment & Plan - Assessment and Plan (Free Text) Assessment: 47 Y/O M patient seen and evaluated in the ED for Left ankle pain 5 days S/P hardware removal of the left ankle. Plan: Patient seen and evaluated in the ED Plan discussed in details with attending Dr. Ronquillo. X-ray L ankle didn't show any sign of osteomyelitis, Soft tissue swelling S/P hardware removal surgery. Labs, Vitals and chart reviewed; Patient is febrile 102.6 F, WBCs 8.3. Ordered Venous duplex Left LE. Chest -ray and urine analysis are WNL. Blood culture sent to lab; pending. Patient to continue Keflex 500 mg tablets TID. Patient will continue to take the pain medications PRN. Discussed with the patient the need to be admitted for pain and fever control. Discussed with the patient that advanced imaging MRI might be considered in case that pain and fever aren't improved. Patient will be admitted to the hospital for fever and pain control. Podiatry will continue to follow up the patient while in house. - Date & Time Date: 09/21/17 Time: 01:09
[2017-09-21] MEDS: Oxycodone/Acetaminophen 5/325 mg Tab PO PRN ×3 (07:45→20:59)
[2017-09-21 07:58] LABS: BASO % 0.7 % (0.0-2.0); EOS # 0.2 K/uL (0.0-0.7); EOS % 3.1 % (0.0-4.0); HEMOGLOBIN 15.4 g/dL (12.0-18.0); LYMPH # 2.1 K/uL (1.0-4.3); LYMPH % 29.7 % (20.0-40.0); MEAN CELL VOLUME 91.5 fl (80.0-94.0); MEAN CORPUSCULAR HEMOGLOBIN 31.2 pg (27.0-31.0); MEAN CORPUSCULAR HGB CONC 34.1 g/dL (33.0-37.0); MEAN PLATELET VOLUME 8.3 fl (7.2-11.7); MONO # 1.2 K/uL (0.0-0.8); NEUT # 3.5 K/uL (1.8-7.0); NEUT % 49.5 % (50.0-75.0); NRBC % 0.1 % (0.0-0.0); RBC 4.93 Mil/uL (4.40-5.90); RED CELL DISTRIBUTION WIDTH 13.8 % (11.5-14.5); WHITE BLOOD COUNT 7.1 K/uL (4.8-10.8)
--- NOTE | 2017-09-21 08:02 | CP.PCM.HP ---
<Leah Clement - Last Filed: 09/21/17 13:50> History of Present Illness - History of Present Illness History of Present Illness: 47 yo M with hx anxiety and COPD, admitted for further workup of fever after procedure done Saturday 09/16. Patient states that he had surgery for removal of hardware from his left ankle at [facility] with Dr. Ronquillo, and that since that day he has been having high fevers, up to 105F. He states he and his thought their thermometer was broken, so they bought another one and it gave the same readings. Had taken tylenol, but states it did not help. He was sent home with prescription for Keflex, reports he took as prescribed. He was seen by podiatry in the ED, where he also relayed that he took 2 percocet 5-325 mg for pain every 6 hrs for 2 days, but since Tuesday has been taking 1 tab Q 12 hrs because he got constipated and was concerned he would run out of medication. Decreasing dose helped with constipation but not with pain. States he did not bear weight on his right foot and was icing and elevating extremity. ROS positive for body aches, chills, loss of appetite, Negative for chest pain, vomiting, cough. PMH: Anxiety, COPD PSH: Cholecystectomy, Tonsillectomy, tibia/fibular fracture repair x2 Social Hx: Denies smoking, ETOH or illicit drug use. Fam hx: noncontributory Allergies: NKDA Meds: flexeril, percocet Present on Admission - Present on Admission Any Indicators Present on Admission: No Review of Systems - Review of Systems Review of Systems: as per HPI Past Patient History - Past Medical History & Family History Past Medical History?: Yes - Past Social History Smoking Status: Never Smoked - CARDIAC Hx Cardiac Disorders: No - PULMONARY Hx Respiratory Disorders: Yes Hx Chronic Obstructive Pulmonary Disease (COPD): Yes (from 10/18 work) - NEUROLOGICAL Hx Neurological Disorder: No - HEENT Hx HEENT Problems: No - RENAL Hx Chronic Kidney Disease: No - ENDOCRINE/METABOLIC Hx Endocrine Disorders: No - HEMATOLOGICAL/ONCOLOGICAL Hx Blood Disorders: Yes Other/Comment: Cancer of gall bladder - INTEGUMENTARY Hx Dermatological Problems: No - MUSCULOSKELETAL/RHEUMATOLOGICAL Hx Musculoskeletal Disorders: Yes Hx Falls: Yes Hx Fractures: Yes (left ankle, left tibia/fibula) - GASTROINTESTINAL Hx Gastrointestinal Disorders: No - GENITOURINARY/GYNECOLOGICAL Hx Genitourinary Disorders: No - PSYCHIATRIC Hx Psychophysiologic Disorder: Yes Hx Anxiety: Yes - SURGICAL HISTORY Hx Surgeries: Yes Hx Cholecystectomy: Yes Hx Tonsillectomy: Yes Other/Comment: left tib/fib repair x2 - ANESTHESIA Hx Anesthesia: Yes Hx Anesthesia Reactions: No Hx Malignant Hyperthermia: No Meds Allergies/Adverse Reactions: Allergies Allergy/AdvReac Type Severity Reaction Status Date / Time No Known Allergies Allergy Verified 06/08/17 21:34 Physical Exam - Constitutional Appears: Non-toxic, No Acute Distress - Respiratory Exam Respiratory Exam: Clear to Auscultation Bilateral, NORMAL BREATHING PATTERN. absent: Respiratory Distress - Cardiovascular Exam Cardiovascular Exam: REGULAR RHYTHM, +S1, +S2 - GI/Abdominal Exam GI & Abdominal Exam: Normal Bowel Sounds, Soft - Extremities Exam Additional comments: LLE in wrap - Neurological Exam Neurological exam: Alert, Oriented x3 - Psychiatric Exam Psychiatric exam: Anxious - Skin Skin Exam: Warm Results - Vital Signs Recent Vital Signs: Last Vital Signs Temp 98.6 F 09/21/17 04:59 Pulse 72 09/21/17 06:31 Resp 18 09/21/17 06:31 BP 139/71 09/21/17 04:59 Pulse Ox 97 09/21/17 06:31 - Labs Result Diagrams: 09/21/17 07:37 09/21/17 07:37 Labs: Laboratory Results - last 24 hr 09/20/17 09/20/17 09/20/17 22:58 22:58 23:03 WBC 8.3 RBC 5.28 Hgb 16.3 Hct 48.8 MCV 92.4 MCH 30.9 MCHC 33.5 RDW 14.0 Plt Count 247 MPV 8.2 Neut % (Auto) 68.7 Lymph % (Auto) 16.3 L [place] % (Auto) 13.0 H Eos % (Auto) 1.6 Baso % (Auto) 0.4 Neut # (Auto) 5.7 Lymph # (Auto) 1.4 [place] # (Auto) 1.1 H Eos # (Auto) 0.1 Baso # (Auto) 0.0 pO2 34 VBG pH 7.39 VBG pCO2 47 VBG HCO3 26.2 VBG Total CO2 29.9 H VBG O2 Sat (Calc) 66.5 H VBG Base Excess 2.8 H VBG Potassium 4.3 Glucose 95 Lactate 1.5 FiO2 21.0 Sodium 139 134.0 Potassium 4.4 Chloride 104 102.0 Carbon Dioxide 26 Anion Gap 13 BUN 18 Creatinine 1.4 Est GFR ( Amer) > 60 Est GFR (Non-Af Amer) 55 Random Glucose 101 Calcium 9.2 Venous Blood Potassium 4.3 Urine Color Urine Clarity Urine pH Ur Specific [place] Urine Protein Urine Glucose (UA) Urine Ketones Urine Blood Urine Nitrate Urine Bilirubin Urine Urobilinogen Ur Leukocyte Esterase Urine RBC (Auto) Urine Microscopic WBC 09/21/17 00:34 WBC RBC Hgb Hct MCV MCH MCHC RDW Plt Count MPV Neut % (Auto) Lymph % (Auto) [place] % (Auto) Eos % (Auto) Baso % (Auto) Neut # (Auto) Lymph # (Auto) [place] # (Auto) Eos # (Auto) Baso # (Auto) pO2 VBG pH VBG pCO2 VBG HCO3 VBG Total CO2 VBG O2 Sat (Calc) VBG Base Excess VBG Potassium Glucose Lactate FiO2 Sodium Potassium Chloride Carbon Dioxide Anion Gap BUN Creatinine Est GFR ( Amer) Est GFR (Non-Af Amer) Random Glucose Calcium Venous Blood Potassium Urine Color Yellow Urine Clarity Clear Urine pH 8.0 Ur Specific [place] 1.013 Urine Protein Negative Urine Glucose (UA) Neg Urine Ketones Negative Urine Blood Moderate Urine Nitrate Negative Urine Bilirubin Negative Urine Urobilinogen 0.2-1.0 Ur Leukocyte Esterase Neg Urine RBC (Auto) 1 Urine Microscopic WBC < 1 Assessment & Plan - Assessment and Plan (Free Text) Assessment: 47 yo M with anxiety, recent left lower extremity surgery for removal of hardware with fevers. Vitals stable; had one elevated temp on arrival to ED, afebrile since then. Plan: - admitted to [facility] - pain control - monitor for fevers - zosyn, vancomycin - podiatry consulted - ID consult - regular diet - lovenox - rest of plan as ordered <Jagjit Rudolph - Last Filed: 09/23/17 06:49> Results - Vital Signs Recent Vital Signs: Last Vital Signs Temp 98.4 F 09/23/17 00:36 Pulse 75 09/23/17 00:36 Resp 18 09/23/17 00:36 BP 119/71 09/23/17 00:36 Pulse Ox 98 09/23/17 00:36 - Labs Result Diagrams: 09/22/17 05:55 09/22/17 05:55 Labs: Laboratory Results - last 24 hr 09/21/17 09/22/17 09/22/17 11:32 05:55 05:55 WBC 5.1 RBC 5.03 Hgb 15.6 Hct 46.5 MCV 92.4 MCH 31.1 H MCHC 33.7 RDW 13.9 Plt Count 219 MPV 8.3 Neut % (Auto) 45.2 L Lymph % (Auto) 34.0 [place] % (Auto) 15.8 H Eos % (Auto) 4.1 H Baso % (Auto) 0.9 Neut # (Auto) 2.3 Lymph # (Auto) 1.7 [place] # (Auto) 0.8 Eos # (Auto) 0.2 Baso # (Auto) 0.0 ESR 10 C-React Prot High Sens > 15.00 H Procalcitonin < 0.05 L Vancomycin Trough 09/22/17 05:55 WBC RBC Hgb Hct MCV MCH MCHC RDW Plt Count MPV Neut % (Auto) Lymph % (Auto) [place] % (Auto) Eos % (Auto) Baso % (Auto) Neut # (Auto) Lymph # (Auto) [place] # (Auto) Eos # (Auto) Baso # (Auto) ESR C-React Prot High Sens Procalcitonin Vancomycin Trough 8.0 Assessment & Plan - Assessment and Plan (Free Text) Plan: Patient was personally seen and examined by me in rounds with residents. Available labs and diagnostic data reviewed. Case, Patient's condition and management plan discussed with residents in rounds. Agree with resident's progress note. Plan: As ordered.
[2017-09-21 08:21] LABS: ALB/GLOB RATIO 1.5 (1.0-2.1); ALT/SGPT 41 U/L (21-72); AST/SGOT 41 U/L (17-59); BLOOD UREA NITROGEN 16 mg/dl (9-20); CALCIUM 8.8 mg/dL (8.4-10.2); GFR AFRICAN-AMERICAN > 60; GFR NON-AFRICAN AMERICAN > 60; HDL CHOLESTEROL 34 MG/DL (30-70)
[2017-09-21 08:31] LABS: LDL CHOLESTEROL 95 mg/dL (0-129)
--- NOTE | 2017-09-21 08:52 | RAD ---
Date of service: 09/20/2017 PROCEDURE: Left Ankle Radiographs. HISTORY: s/p surgery Arturo, fever COMPARISON: None FINDINGS: BONES: Prior orthopedic hardware residual tracts from its recent removal noted No interval fracture. JOINTS: Medial tibiotalar arthrosis -similar osteoarthritis. Ankle mortise maintained. Talar dome intact SOFT TISSUES: Mild soft tissue swelling OTHER FINDINGS: None. IMPRESSION: No interval periosteal reaction or gross cortical destruction seen to suggest osteomyelitis. Interval hardware removal
[2017-09-21] MEDS: Enoxaparin 40 mg Syringe SC SCH (09:31)
[2017-09-21] MEDS: Naproxen 500 MG TAB PO SCH ×2 (09:32→16:31)
[2017-09-21] MEDS: Piperacillin/Tazobact 3.375 GM in Sodium Chloride 0.9% 100 ML IVPB SCH ×2 (11:02→16:30)
--- NOTE | 2017-09-21 12:14 | CP.PCM.CON ---
History of Present Illness - History of Present Illness History of Present Illness: 47 yo M with hx anxiety and COPD, admitted for further workup of fever after procedure done Tuesday09/16/17 for removal of hardware left ankle . ID consulted for antibiotic management ROS positive for body aches, chills, loss of appetite, Negative for chest pain, vomiting, cough. PMH: Anxiety, COPD PSH: Cholecystectomy, Tonsillectomy, tibia/fibular fracture repair x2 multiple foot and ankle surgeries Social Hx: Denies smoking, ETOH or illicit drug use. Fam hx: noncontributory Allergies: NKDA Meds: flexeril, percocet Review of Systems - Review of Systems All systems: reviewed and no additional remarkable complaints except - Constitutional Constitutional: As Per HPI, Chills, Fever, Malaise - EENT Eyes: absent: As Per HPI, Blind Spots, Blurred Vision, Change in Vision, Decreased Night Vision, Diplopia, Discharge, Dry Eye, Exophthalmos, Floaters, Irritation, Itchy Eyes, Loss of Peripheral Vision, Pain, Photophobia, Requires Corrective Lenses, Sees Flashes, Spots in Vision, Tunnel Vision, Other Visual Disturbances, Loss of Vision, Other Ears: absent: As Per HPI, Decreased Hearing, Ear Discharge, Ear Pain, Tinnitus, Abnormal Hearing, Disequilibrium, Dizziness, Other Nose/Mouth/Throat: absent: As Per HPI, Epistaxis, Nasal Congestion, Nasal Discharge, Nasal Obstruction, Nasal Trauma, Nose Pain, Post Nasal Drip, Sinus Pain, Sinus Pressure, Bleeding Gums, Change in Voice, Dental Pain, Dry Mouth, Dysphagia, Halitosis, Hoarsness, Lip Swelling, Mouth Lesions, Mouth Pain, Odynophagia, Sore Throat, Throat Swelling, Tongue Swelling, Facial Pain, Neck Pain, Neck Mass, Other - Cardiovascular Cardiovascular: absent: As Per HPI, Acrocyanosis, Chest Pain, Chest Pain at Rest , Chest Pain with Activity, Claudication, Diaphoresis, Dyspnea, Dyspnea on Exertion, Edema, Irregular Heart Rhythm, Pain Radiating to Arm/Neck/Jaw, Leg Edema, Leg Ulcers, Lightheadedness, Orthopnea, Palpitations, Paroxysmal Nocturnal Dyspnea, Pedal Edema, Radiating Pain, Rapid Heart Rate, Slow Heart Rate, Syncope, Other - Respiratory Respiratory: absent: As Per HPI, Cough, Dyspnea, Hemoptysis, Dyspnea on Exertion , Wheezing, Snoring, Stridor, Pain on Inspiration, Chest Congestion, Excessive Mucous Production, Change in Mucous Color, Pain with Coughing, Other - Gastrointestinal Gastrointestinal: absent: As Per HPI, Abdominal Pain, Belching, Bloating, Change in Bowel Habits, Change in Stool Character, Coffee Ground Emesis, Constipation, Cramping, Diarrhea, Dyspepsia, Dysphagia, Early Satiety, Excessive Flatus, Fecal Incontinence, Heartburn, Hematemesis, Hematochezia, Loose Stools, Melena, Nausea, Odynophagia, Temesmus, Vomiting, Other - Genitourinary Genitourinary: absent: As Per HPI, Change in Urinary Stream, Difficulty Urinating, Dysuria, Flank Pain, Hematuria, Pyuria, Nocturia, Urinary Incontinence, Urinary Frequency, Urinary Hesitance, Urinary Urgency, Voiding Freq/Small Amts, Freq UTI, Hx Renal/Bladder Calculi, Hx /Renal Surgery, Bladder Distension, Other - Musculoskeletal Musculoskeletal: As Per HPI - Integumentary Integumentary: As Per HPI, Skin Pain, Wounds - Neurological Neurological: absent: As Per HPI, Abnormal Gait, Abnormal Hearing, Abnormal Movements, Abnormal Speech, Behavioral Changes, Burning Sensations, Confusion, Convulsions, Disequilibrium, Dizziness, Numbness, Focal Weakness, Frequent Falls , Headaches, Lack of Coordination, Loss of Vision, Memory Loss, Paresthesias, Radicular Pain, Restless Legs, Sensory Deficit, Syncope, Tingling, Tremor, Vertigo, Weakness, Other Visual Disturbances, Other - Psychiatric Psychiatric: absent: As Per HPI, Abnormal Sleep Pattern, Anhedonia, Anxiety, Auditory Hallucinations, Behavioral Changes, Change in Appetite, Change in Libido, Confusion, Depression, Difficulty Concentrating, Hallucinations, Homicidal Ideation, Hopelessness, Irritability, Memory Loss, Mood Swings, Panic Attacks, Paranoia, Suicidal Ideation, Visual Hallucinations, Tactile Hallucinations, Other - Endocrine Endocrine: absent: As Per HPI, Change in Body Appearance, Change in Libido, Cold Intolorance, Deepening of Voice, Excessive Sweating, Fatigue, Flushing, Heat Intolorance, Increase in Ring/Shoe/Hat Size, Palpitations, Polydipsia, Polyphagia, Polyuria, Other - Hematologic/Lymphatic Hematologic: absent: As Per HPI, Easy Bleeding, Easy Bruising, Lymphadenopathy, Other Past Patient History - Past Medical History & Family History Past Medical History?: Yes - Past Social History Smoking Status: Never Smoked - CARDIAC Hx Cardiac Disorders: No - PULMONARY Hx Respiratory Disorders: Yes Hx Chronic Obstructive Pulmonary Disease (COPD): Yes (from 10/18 work) - NEUROLOGICAL Hx Neurological Disorder: No - HEENT Hx HEENT Problems: No - RENAL Hx Chronic Kidney Disease: No - ENDOCRINE/METABOLIC Hx Endocrine Disorders: No - HEMATOLOGICAL/ONCOLOGICAL Hx Blood Disorders: Yes Other/Comment: Cancer of gall bladder - INTEGUMENTARY Hx Dermatological Problems: No - MUSCULOSKELETAL/RHEUMATOLOGICAL Hx Musculoskeletal Disorders: Yes Hx Falls: Yes Hx Fractures: Yes (left ankle, left tibia/fibula) - GASTROINTESTINAL Hx Gastrointestinal Disorders: No - GENITOURINARY/GYNECOLOGICAL Hx Genitourinary Disorders: No - PSYCHIATRIC Hx Psychophysiologic Disorder: Yes Hx Anxiety: Yes - SURGICAL HISTORY Hx Surgeries: Yes Hx Cholecystectomy: Yes Hx Tonsillectomy: Yes Other/Comment: left tib/fib repair x2 - ANESTHESIA Hx Anesthesia: Yes Hx Anesthesia Reactions: No Hx Malignant Hyperthermia: No Meds Allergies/Adverse Reactions: Allergies Allergy/AdvReac Type Severity Reaction Status Date / Time No Known Allergies Allergy Verified 06/08/17 21:34 - Medications Medications: Current Medications Cyclobenzaprine HCl (Flexeril) 10 mg PO Q8 [facility] Last Admin: 09/21/17 09:31 Dose: 10 mg Enoxaparin Sodium (Lovenox) 40 mg SC DAILY [facility] PRN Reason: Protocol Last Admin: 09/21/17 09:31 Dose: 40 mg Piperacillin Sod/Tazobactam (Sod 3.375 gm/ Sodium Chloride) 100 mls @ 100 mls/ hr IVPB Q8 [facility] PRN Reason: Protocol Last Admin: 09/21/17 11:02 Dose: 100 mls/hr Vancomycin HCl 1 gm/ Sodium (Chloride) 250 mls @ 166.667 mls/hr IVPB Q12 [facility] PRN Reason: Protocol Last Admin: 09/21/17 12:10 Dose: 166.667 mls/hr Lorazepam (Ativan) 1 mg PO BID PRN PRN Reason: Anxiety Morphine Sulfate (Morphine) 2 mg IVP Q4 PRN PRN Reason: severe pain (7-10) Last Admin: 09/21/17 09:30 Dose: 2 mg Naproxen (Naproxen) 500 mg PO BID [facility] Last Admin: 09/21/17 09:32 Dose: 500 mg Oxycodone/Acetaminophen (Percocet 5/325 Mg Tab) 2 tab PO Q6 PRN PRN Reason: Pain, moderate (4-7) Stop: 09/24/17 06:33 Last Admin: 09/21/17 07:45 Dose: 2 tab Physical Exam - Constitutional Appears: No Acute Distress, Chronically Ill - Head Exam Head Exam: ATRAUMATIC, NORMOCEPHALIC - Eye Exam Eye Exam: PERRL. absent: Scleral icterus - ENT Exam ENT Exam: Mucous Membranes Dry, Normal External Ear Exam - Neck Exam Neck exam: Negative for: Lymphadenopathy - Respiratory Exam Respiratory Exam: Decreased Breath Sounds, Clear to Auscultation Bilateral - Cardiovascular Exam Cardiovascular Exam: REGULAR RHYTHM, +S1, +S2 - GI/Abdominal Exam GI & Abdominal Exam: Diminished Bowel Sounds, Soft. absent: Tenderness - Rectal Exam Rectal Exam: Deferred - Exam Exam: NORMAL INSPECTION - Extremities Exam Extremities exam: Positive for: pedal edema, tenderness, pedal pulses present. Negative for: calf tenderness - Back Exam Back exam: absent: CVA tenderness (L), CVA tenderness (R), paraspinal tenderness - Neurological Exam Neurological exam: Alert, CN II-XII Intact, Oriented x3, Reflexes Normal - Psychiatric Exam Psychiatric exam: Normal Mood - Skin Skin Exam: Dry, Intact Results - Vital Signs Recent Vital Signs: Last Vital Signs Temp 98.6 F 09/21/17 08:21 Pulse 62 09/21/17 08:21 Resp 18 09/21/17 08:21 BP 127/71 09/21/17 08:21 Pulse Ox 99 09/21/17 08:21 - Labs Result Diagrams: 09/21/17 07:37 09/21/17 07:37 Labs: Laboratory Results - last 24 hr 09/20/17 09/20/17 09/20/17 22:58 22:58 23:03 WBC 8.3 RBC 5.28 Hgb 16.3 Hct 48.8 MCV 92.4 MCH 30.9 MCHC 33.5 RDW 14.0 Plt Count 247 MPV 8.2 Neut % (Auto) 68.7 Lymph % (Auto) 16.3 L [place] % (Auto) 13.0 H Eos % (Auto) 1.6 Baso % (Auto) 0.4 Neut # (Auto) 5.7 Lymph # (Auto) 1.4 Sutton # (Auto) 1.1 H Eos # (Auto) 0.1 Baso # (Auto) 0.0 pO2 34 VBG pH 7.39 VBG pCO2 47 VBG HCO3 26.2 VBG Total CO2 29.9 H VBG O2 Sat (Calc) 66.5 H VBG Base Excess 2.8 H VBG Potassium 4.3 Glucose 95 Lactate 1.5 FiO2 21.0 Sodium 139 134.0 Potassium 4.4 Chloride 104 102.0 Carbon Dioxide 26 Anion Gap 13 BUN 18 Creatinine 1.4 Est GFR ( Amer) > 60 Est GFR (Non-Af Amer) 55 Random Glucose 101 Calcium 9.2 Total Bilirubin AST ALT Alkaline Phosphatase Total Protein Albumin Globulin Albumin/Globulin Ratio Triglycerides Cholesterol LDL Cholesterol Direct HDL Cholesterol Vitamin B12 TSH 3rd Generation Venous Blood Potassium 4.3 Urine Color Urine Clarity Urine pH Ur Specific [place] Urine Protein Urine Glucose (UA) Urine Ketones Urine Blood Urine Nitrate Urine Bilirubin Urine Urobilinogen Ur Leukocyte Esterase Urine RBC (Auto) Urine Microscopic WBC 09/21/17 09/21/17 09/21/17 00:34 07:37 07:37 WBC 7.1 RBC 4.93 Hgb 15.4 Hct 45.1 MCV 91.5 MCH 31.2 H MCHC 34.1 RDW 13.8 Plt Count 242 MPV 8.3 Neut % (Auto) 49.5 L Lymph % (Auto) 29.7 Sutton % (Auto) 17.0 H Eos % (Auto) 3.1 Baso % (Auto) 0.7 Neut # (Auto) 3.5 Lymph # (Auto) 2.1 Sutton # (Auto) 1.2 H Eos # (Auto) 0.2 Baso # (Auto) 0.0 pO2 VBG pH VBG pCO2 VBG HCO3 VBG Total CO2 VBG O2 Sat (Calc) VBG Base Excess VBG Potassium Glucose Lactate FiO2 Sodium 138 Potassium 4.3 Chloride 106 Carbon Dioxide 24 Anion Gap 12 BUN 16 Creatinine 1.0 Est GFR ( Amer) > 60 Est GFR (Non-Af Amer) > 60 Random Glucose 94 Calcium 8.8 Total Bilirubin 0.8 AST 41 ALT 41 Alkaline Phosphatase 62 Total Protein 6.7 Albumin 4.0 Globulin 2.7 Albumin/Globulin Ratio 1.5 Triglycerides 107 Cholesterol 162 LDL Cholesterol Direct 95 HDL Cholesterol 34 Vitamin B12 620 TSH 3rd Generation 2.36 Venous Blood Potassium Urine Color Yellow Urine Clarity Clear Urine pH 8.0 Ur Specific [place] 1.013 Urine Protein Negative Urine Glucose (UA) Neg Urine Ketones Negative Urine Blood Moderate Urine Nitrate Negative Urine Bilirubin Negative Urine Urobilinogen 0.2-1.0 Ur Leukocyte Esterase Neg Urine RBC (Auto) 1 Urine Microscopic WBC < 1 Assessment & Plan (1) Fever Status: Acute (2) Ankle fracture Status: Acute - Assessment and Plan (Free Text) Assessment: fever post op s/p removal of hardware for tib-fib fx 1 yr ago r/o OM recommend imaging cultures may need further exploration cont iv antibiotics , wound care dvt prophylaxis
--- NOTE | 2017-09-21 13:16 | CP.PCM.PN ---
Subjective - Date & Time of Evaluation Date of Evaluation: 09/21/17 Time of Evaluation: 13:10 - Subjective Subjective: Podiatry progress note for Dr. Ronquillo: 47 yo male patient seen and evaluated at bedside for L ankle pain. Patient states he is feeling a little better today, however still had pain to his L ankle. His ankle is in 6/10 pain today. He continues to remain NWB to LLE with use of crutches. Patient notes that he had a follow up appointment with Dr. Ronquillo today in clinic, however he was admitted to the hospital. Patient states that they took off his posterior splint to do ultrasound of lower extremity. Patient denies V/F/SOB. Objective - Vital Signs/Intake and Output Vital Signs (last 24 hours): Temp Pulse Resp BP Pulse Ox 98.6 F 62 18 127/71 99 09/21/17 08:21 09/21/17 08:21 09/21/17 08:21 09/21/17 08:21 09/21/17 08:21 - Medications Medications: Current Medications Cyclobenzaprine HCl (Flexeril) 10 mg PO Q8 [facility] Last Admin: 09/21/17 09:31 Dose: 10 mg Enoxaparin Sodium (Lovenox) 40 mg SC DAILY [facility] PRN Reason: Protocol Last Admin: 09/21/17 09:31 Dose: 40 mg Piperacillin Sod/Tazobactam (Sod 3.375 gm/ Sodium Chloride) 100 mls @ 100 mls/ hr IVPB Q8 [facility] PRN Reason: Protocol Last Admin: 09/21/17 11:02 Dose: 100 mls/hr Vancomycin HCl 1 gm/ Sodium (Chloride) 250 mls @ 166.667 mls/hr IVPB Q12 [facility] PRN Reason: Protocol Last Admin: 09/21/17 12:10 Dose: 166.667 mls/hr Lorazepam (Ativan) 1 mg PO BID PRN PRN Reason: Anxiety Morphine Sulfate (Morphine) 2 mg IVP Q4 PRN PRN Reason: severe pain (7-10) Last Admin: 09/21/17 09:30 Dose: 2 mg Naproxen (Naproxen) 500 mg PO BID [facility] Last Admin: 09/21/17 09:32 Dose: 500 mg Oxycodone/Acetaminophen (Percocet 5/325 Mg Tab) 2 tab PO Q6 PRN PRN Reason: Pain, moderate (4-7) Stop: 09/24/17 06:33 Last Admin: 09/21/17 07:45 Dose: 2 tab - Labs Labs: 09/21/17 07:37 09/21/17 07:37 - Head Exam Head Exam: ATRAUMATIC, NORMOCEPHALIC - Extremities Exam Additional comments: LLE focused exam: Vasc: DP 2/4, PT 1/4. Cap refill < 3 sec in all digits. Temp gradient warm to warm. Brawny edema noted to medial and lateral malleoloar region Neuro: Gross and protective sensation intact Derm: Surgical site intact to medial and lateral ankle. Steri strips in place. Skin edges well coapted, no dehiscence, no malodor, no drainage, no erythema. Ortho: Pain on palpation of the perimalleolar area. - Neurological Exam Neurological Exam: Alert, Normal Gait, Oriented x3 - Psychiatric Exam Psychiatric exam: Normal Affect, Normal Mood Assessment and Plan - Assessment and Plan (Free Text) Assessment: 47 yo male patient seen and evaluated in the ED for Left ankle pain 5 days S/P hardware removal of the left ankle. Plan: Patient seen and evaluated with all questions and concerns addressed Discussed patient plan in detail with Dr. Ronquillo Chart, vitals, and labs reviewed; afebrile (98.6), absent leukocytosis (7.1) Surgical site dressed with DSD and Kerlix Posterior splint re-applied to left lower extremity Venous duplex ordered to r/o DVT; final report pending Will continue to follow patient while in house
--- NOTE | 2017-09-21 15:21 | RAD ---
Date of service: 09/20/2017 HISTORY: post op fever COMPARISON: 01/29/2014 FINDINGS: LUNGS: No active pulmonary disease. PLEURA: No significant pleural effusion identified, no pneumothorax apparent. CARDIOVASCULAR: Normal. OSSEOUS STRUCTURES: No significant abnormalities. VISUALIZED UPPER ABDOMEN: Normal. OTHER FINDINGS: None. IMPRESSION: No active disease. No interval pathology noted
--- NOTE | 2017-09-21 16:05 | US ---
Date of service: 09/21/2017 PROCEDURE: Left Lower Extremity Venous Duplex Exam. HISTORY: To R/O Left LE DVT. PRIORS: None. TECHNIQUE: Left common femoral, femoral, popliteal and posterior tibial, peroneal and great saphenous veins were evaluated. Flow was assessed with color Doppler, compressibility, assessment of phasic flow and augmentation response. Report prepared by radiation therapy technologist. FINDINGS: LEFT: 1. Common Femoral Vein: 1.1. Compressibility - Fully compressible: Thrombus - None : Flow - Phasic: Augmentation -Normal: Reflux - None. 2. Femoral Vein: 2.1. Compressibility - Fully compressible: Thrombus - None: Flow - Phasic: Augmentation -Normal: Reflux - None. 3. Popliteal Vein: 3.1. Compressibility - Fully compressible: Thrombus - None: Flow - Phasic: Augmentation -Normal: Reflux - None. 4. Posterior Tibial Vein: 4.1. Compressibility - Fully compressible: Thrombus - None: Flow - Phasic: Augmentation -Normal: Reflux - None. 5. Peroneal Vein: 5.1. Compressibility - Fully compressible: Thrombus - None: Flow - Phasic: Augmentation -Normal: Reflux - None. 6. Great Saphenous Vein: 6.1. Compressibility - Fully compressible: Thrombus - None: Flow - Phasic: Augmentation - Normal: Reflux - None. OTHER FINDINGS: Mildly enlarged left groin lymph node is noted measures 2.2 x 1.1 centimeter. IMPRESSION: No evidence of deep vein thrombosis of the left lower extremity with excellent venous flow.
[2017-09-22] MEDS: Piperacillin/Tazobact 3.375 GM in Sodium Chloride 0.9% 100 ML IVPB SCH ×3 (00:35→16:37)
[2017-09-22 06:33] LABS: BASO % 0.9 % (0.0-2.0); EOS # 0.2 K/uL (0.0-0.7); EOS % 4.1 % (0.0-4.0); HEMOGLOBIN 15.6 g/dL (12.0-18.0); LYMPH # 1.7 K/uL (1.0-4.3); MEAN CELL VOLUME 92.4 fl (80.0-94.0); MEAN CORPUSCULAR HEMOGLOBIN 31.1 pg (27.0-31.0); MEAN CORPUSCULAR HGB CONC 33.7 g/dL (33.0-37.0); MEAN PLATELET VOLUME 8.3 fl (7.2-11.7); MONO # 0.8 K/uL (0.0-0.8); MONO % 15.8 % (0.0-10.0); NEUT # 2.3 K/uL (1.8-7.0); NEUT % 45.2 % (50.0-75.0); NRBC % 0.2 % (0.0-0.0); RBC 5.03 Mil/uL (4.40-5.90); RED CELL DISTRIBUTION WIDTH 13.9 % (11.5-14.5); WHITE BLOOD COUNT 5.1 K/uL (4.8-10.8)
[2017-09-22 06:38] LABS: ALB/GLOB RATIO 1.5 (1.0-2.1); ALBUMIN 3.9 g/dL (3.5-5.0); ALT/SGPT 33 U/L (21-72); AST/SGOT 35 U/L (17-59); BLOOD UREA NITROGEN 17 mg/dl (9-20); GFR AFRICAN-AMERICAN > 60; GFR NON-AFRICAN AMERICAN > 60
--- NOTE | 2017-09-22 07:36 | CP.PCM.PN ---
Subjective - Date & Time of Evaluation Date of Evaluation: 09/22/17 Time of Evaluation: 07:34 - Subjective Subjective: Podiatry progress note for Dr. Ronquillo: 47 yo male patient seen and evaluated at bedside for L ankle pain. Patient states he is feeling a little better today, however still had pain to his L ankle. His ankle is in 6/10 pain today. He continues to remain NWB to LLE with use of crutches. Patient states Dr. Rudolph has told him he will remain in the hospital for a few more days for IV antibiotics. Patient denies V/F/SOB. Objective - Vital Signs/Intake and Output Vital Signs (last 24 hours): Temp Pulse Resp BP Pulse Ox 98.1 F 72 18 118/64 98 09/22/17 01:00 09/22/17 01:00 09/22/17 01:00 09/22/17 01:00 09/22/17 01:00 - Medications Medications: Current Medications Cyclobenzaprine HCl (Flexeril) 10 mg PO Q8 [facility] Last Admin: 09/22/17 00:35 Dose: 10 mg Enoxaparin Sodium (Lovenox) 40 mg SC DAILY [facility] PRN Reason: Protocol Last Admin: 09/21/17 09:31 Dose: 40 mg Piperacillin Sod/Tazobactam (Sod 3.375 gm/ Sodium Chloride) 100 mls @ 100 mls/ hr IVPB Q8 [facility] PRN Reason: Protocol Last Admin: 09/22/17 00:35 Dose: 100 mls/hr Vancomycin HCl 1 gm/ Sodium (Chloride) 250 mls @ 166.667 mls/hr IVPB Q12 [facility] PRN Reason: Protocol Last Admin: 09/21/17 20:35 Dose: 166.667 mls/hr Lorazepam (Ativan) 1 mg PO BID PRN PRN Reason: Anxiety Morphine Sulfate (Morphine) 2 mg IVP Q4 PRN PRN Reason: severe pain (7-10) Last Admin: 09/22/17 07:00 Dose: 2 mg Naproxen (Naproxen) 500 mg PO BID [facility] Last Admin: 09/21/17 16:31 Dose: 500 mg Oxycodone/Acetaminophen (Percocet 5/325 Mg Tab) 2 tab PO Q6 PRN PRN Reason: Pain, moderate (4-7) Stop: 09/24/17 06:33 Last Admin: 09/21/17 20:59 Dose: 2 tab - Labs Labs: 09/21/17 07:37 09/22/17 05:55 - Constitutional Appears: Well, Non-toxic, No Acute Distress - Head Exam Head Exam: ATRAUMATIC, NORMOCEPHALIC - Extremities Exam Additional comments: LLE focused exam: Dressing clean dry intact, CFT <3 secs x10. - Neurological Exam Neurological Exam: Alert, Awake, Oriented x3 - Psychiatric Exam Psychiatric exam: Normal Affect, Normal Mood Assessment and Plan - Assessment and Plan (Free Text) Assessment: 47 yo male patient seen and evaluated in the ED for Left ankle pain 5 days S/P hardware removal of the left ankle. Plan: Patient seen and evaluated with all questions and concerns addressed Discussed patient plan in detail with Dr. Ronquillo Chart, vitals, and labs reviewed; afebrile (98.1), absent leukocytosis (7.1) Surgical site dressed with DSD and Kerlix Posterior splint clean, dry and intact. Venous duplex: no DVT Patient stable from podiatry point of view; patient will follow up with Dr Ronquillo in his office within a week of discharge Podiatry will continue to follow patient while in house
--- NOTE | 2017-09-22 07:53 | CP.PCM.PN ---
Subjective - Date & Time of Evaluation Date of Evaluation: 09/22/17 Time of Evaluation: 07:53 - Subjective Subjective: 47 y/o M reports feeling better. Pt afebrile overnight. Pt is tolerating PO, no acute events overnight. Pt reports his desire to go home. Objective - Vital Signs/Intake and Output Vital Signs (last 24 hours): Temp Pulse Resp BP Pulse Ox 98.1 F 72 18 118/64 98 09/22/17 01:00 09/22/17 01:00 09/22/17 01:00 09/22/17 01:00 09/22/17 01:00 - Medications Medications: Current Medications Cyclobenzaprine HCl (Flexeril) 10 mg PO Q8 [facility] Last Admin: 09/22/17 00:35 Dose: 10 mg Enoxaparin Sodium (Lovenox) 40 mg SC DAILY [facility] PRN Reason: Protocol Last Admin: 09/21/17 09:31 Dose: 40 mg Piperacillin Sod/Tazobactam (Sod 3.375 gm/ Sodium Chloride) 100 mls @ 100 mls/ hr IVPB Q8 [facility] PRN Reason: Protocol Last Admin: 09/22/17 00:35 Dose: 100 mls/hr Vancomycin HCl 1 gm/ Sodium (Chloride) 250 mls @ 166.667 mls/hr IVPB Q12 [facility] PRN Reason: Protocol Last Admin: 09/21/17 20:35 Dose: 166.667 mls/hr Lorazepam (Ativan) 1 mg PO BID PRN PRN Reason: Anxiety Morphine Sulfate (Morphine) 2 mg IVP Q4 PRN PRN Reason: severe pain (7-10) Last Admin: 09/22/17 07:00 Dose: 2 mg Naproxen (Naproxen) 500 mg PO BID [facility] Last Admin: 09/21/17 16:31 Dose: 500 mg Oxycodone/Acetaminophen (Percocet 5/325 Mg Tab) 2 tab PO Q6 PRN PRN Reason: Pain, moderate (4-7) Stop: 09/24/17 06:33 Last Admin: 09/21/17 20:59 Dose: 2 tab - Labs Labs: 09/22/17 05:55 09/22/17 05:55 - Constitutional Appears: Well, No Acute Distress - Head Exam Head Exam: ATRAUMATIC, NORMAL INSPECTION - Eye Exam Eye Exam: EOMI, Normal appearance Pupil Exam: PERRL - ENT Exam ENT Exam: Mucous Membranes Moist - Neck Exam Neck Exam: Full ROM, Normal Inspection - Respiratory Exam Respiratory Exam: Clear to Ausculation Bilateral, NORMAL BREATHING PATTERN - Cardiovascular Exam Cardiovascular Exam: REGULAR RHYTHM, +S1, +S2 - GI/Abdominal Exam GI & Abdominal Exam: Soft. absent: Guarding, Tenderness - Extremities Exam Additional comments: Left lower leg and foot: presence of cast, able to move toes, SILT. Assessment and Plan - Assessment and Plan (Free Text) Assessment: 47 yo M S/P L ankle removal of hardware surgical procedure admitted for evaluation of high fever immediately after surgery. Considering osteomyelitis. --Stable --Antibiotic treatment recommended for 6 weeks. --PICC line placement ordered. --On Zosyn adn Vancomycin. --ID, Dr Marques, on board. F/U recommendations --Regular diet. --Lovenox for DVT prophylaxis. --Rest of plan as ordered.
[2017-09-22] MEDS: Oxycodone/Acetaminophen 5/325 mg Tab PO PRN (09:12)
[2017-09-22] MEDS: Enoxaparin 40 mg Syringe SC SCH (09:15)
[2017-09-22] MEDS: Naproxen 500 MG TAB PO SCH ×2 (09:15→16:37)
[2017-09-22] MEDS ORDERED: Lidocaine 1% 5ml Abboject IV ONE (13:12)
--- NOTE | 2017-09-22 14:18 | PCM.SURG1 ---
Surgeon's Initial Post Op Note - Surgeon's Notes Surgeon: Jessi Freight Sorter: None Type of Anesthesia: Local Pre-Operative Diagnosis: Infection Operative Findings: Patent right basilic vein Post-Operative Diagnosis: Infection Operation Performed: Right baslilic vein 4F SL 37cm PICC placed with the tip in the RA/SVC junction. Specimen/Specimens Removed: None Estimated Blood Loss: EBL {In ML}: 1 Blood Products Given: N/A Drains Used: No Drains Post-Op Condition: Good Date of Surgery/Procedure: 09/22/17 Time of Surgery/Procedure: 14:05
--- NOTE | 2017-09-22 18:03 | CP.PCM.PN ---
Subjective - Date & Time of Evaluation Date of Evaluation: 09/22/17 Time of Evaluation: 09:00 - Subjective Subjective: admitted with left ankle pain and fever 5 days after removal of hardware which was planned and not done due to infection fever has resolved and x rays are neg for OM Objective - Vital Signs/Intake and Output Vital Signs (last 24 hours): Temp Pulse Resp BP Pulse Ox 98.4 F 70 18 121/73 99 09/22/17 16:07 09/22/17 16:07 09/22/17 16:07 09/22/17 16:07 09/22/17 16:07 - Medications Medications: Current Medications Cyclobenzaprine HCl (Flexeril) 10 mg PO Q8 [facility] Last Admin: 09/22/17 16:37 Dose: 10 mg Enoxaparin Sodium (Lovenox) 40 mg SC DAILY [facility] PRN Reason: Protocol Last Admin: 09/22/17 09:15 Dose: 40 mg Piperacillin Sod/Tazobactam (Sod 3.375 gm/ Sodium Chloride) 100 mls @ 100 mls/ hr IVPB Q8 [facility] PRN Reason: Protocol Last Admin: 09/22/17 16:37 Dose: 100 mls/hr Vancomycin HCl 1 gm/ Sodium (Chloride) 250 mls @ 166.667 mls/hr IVPB Q12 [facility] PRN Reason: Protocol Last Admin: 09/22/17 12:07 Dose: 166.667 mls/hr Lorazepam (Ativan) 1 mg PO BID PRN PRN Reason: Anxiety Morphine Sulfate (Morphine) 2 mg IVP Q4 PRN PRN Reason: severe pain (7-10) Last Admin: 09/22/17 15:03 Dose: 2 mg Naproxen (Naproxen) 500 mg PO BID [facility] Last Admin: 09/22/17 16:37 Dose: 500 mg Oxycodone/Acetaminophen (Percocet 5/325 Mg Tab) 2 tab PO Q6 PRN PRN Reason: Pain, moderate (4-7) Stop: 09/24/17 06:33 Last Admin: 09/22/17 09:12 Dose: 2 tab - Labs Labs: 09/22/17 05:55 09/22/17 05:55 - Constitutional Appears: Non-toxic, Chronically Ill - Head Exam Head Exam: NORMOCEPHALIC - Eye Exam Eye Exam: PERRL - ENT Exam ENT Exam: Mucous Membranes Dry - Neck Exam Neck Exam: absent: Lymphadenopathy - Respiratory Exam Respiratory Exam: Decreased Breath Sounds - Cardiovascular Exam Cardiovascular Exam: REGULAR RHYTHM - GI/Abdominal Exam GI & Abdominal Exam: Distended - Rectal Exam Rectal Exam: Deferred - Exam Exam: NORMAL INSPECTION - Extremities Exam Extremities Exam: absent: Calf Tenderness, Tenderness Additional comments: dressing C/D /I - Back Exam Back Exam: absent: CVA tenderness (L), CVA tenderness (R) - Neurological Exam Neurological Exam: Alert, Awake, CN II-XII Intact, Oriented x3 - Psychiatric Exam Psychiatric exam: Normal Mood - Skin Skin Exam: Dry, Intact Assessment and Plan (1) Fever Status: Acute (2) Ankle fracture Status: Acute - Assessment and Plan (Free Text) Assessment: fever post op s/p removal of hardware which was planned and not due to infection as oper podiatry no definite indication of OM or post op wound infection at this time recc MRI if feasible to determine if any post op infection of bone, along with serial sed rates and CRP cont IV antibiotics till clarification of the above
[2017-09-23] MEDS: Piperacillin/Tazobact 3.375 GM in Sodium Chloride 0.9% 100 ML IVPB SCH ×3 (00:29→17:01)
--- NOTE | 2017-09-23 08:01 | CP.PCM.PN ---
Subjective - Date & Time of Evaluation Date of Evaluation: 09/23/17 Time of Evaluation: 07:59 - Subjective Subjective: Podiatry progress note for Dr. Ronquillo: 47 yo male patient seen and evaluated at bedside for L ankle pain. Patient states he is feeling a little better today, however still had pain to his L ankle 09/16. His left lower extremity is seen to be elevated with a posterior splint and c/d/i dressing. He continues to remain NWB to LLE with use of crutches. Patient admits to being nauseous and decreased appetite Patient denies V/F/SOB. Objective - Vital Signs/Intake and Output Vital Signs (last 24 hours): Temp Pulse Resp BP Pulse Ox 98.4 F 75 18 119/71 98 09/23/17 00:36 09/23/17 00:36 09/23/17 00:36 09/23/17 00:36 09/23/17 00:36 - Medications Medications: Current Medications Cyclobenzaprine HCl (Flexeril) 10 mg PO Q8 [facility] Last Admin: 09/23/17 00:29 Dose: 10 mg Enoxaparin Sodium (Lovenox) 40 mg SC DAILY [facility] PRN Reason: Protocol Last Admin: 09/22/17 09:15 Dose: 40 mg Piperacillin Sod/Tazobactam (Sod 3.375 gm/ Sodium Chloride) 100 mls @ 100 mls/ hr IVPB Q8 [facility] PRN Reason: Protocol Last Admin: 09/23/17 00:29 Dose: 100 mls/hr Vancomycin HCl 1 gm/ Sodium (Chloride) 250 mls @ 166.667 mls/hr IVPB Q12 [facility] PRN Reason: Protocol Last Admin: 09/22/17 21:35 Dose: 166.667 mls/hr Lorazepam (Ativan) 1 mg PO BID PRN PRN Reason: Anxiety Morphine Sulfate (Morphine) 2 mg IVP Q4 PRN PRN Reason: severe pain (7-10) Last Admin: 09/23/17 06:55 Dose: 2 mg Naproxen (Naproxen) 500 mg PO BID [facility] Last Admin: 09/22/17 16:37 Dose: 500 mg Oxycodone/Acetaminophen (Percocet 5/325 Mg Tab) 2 tab PO Q6 PRN PRN Reason: Pain, moderate (4-7) Stop: 09/24/17 06:33 Last Admin: 09/22/17 09:12 Dose: 2 tab - Labs Labs: 09/22/17 05:55 09/22/17 05:55 - Constitutional Appears: Well, Non-toxic, No Acute Distress - Head Exam Head Exam: ATRAUMATIC, NORMOCEPHALIC - Extremities Exam Additional comments: LLE focused exam: Dressing clean dry intact, CFT <3 secs x10. - Neurological Exam Neurological Exam: Alert, Awake, Oriented x3 - Psychiatric Exam Psychiatric exam: Normal Affect, Normal Mood Assessment and Plan - Assessment and Plan (Free Text) Assessment: 47 yo male patient seen and evaluated for Left ankle pain and fever S/P hardware removal of the left ankle. Plan: Patient seen and evaluated with all questions and concerns addressed Discussed patient plan in detail with Dr. Ronquillo Chart, vitals, and labs reviewed; afebrile (98.4 09/23 ), absent leukocytosis ( 5.1) 09/23 Posterior splint clean, dry and intact. Venous duplex: no DVT Per mangia, PICC line placed, IV antibiotics for a week if approved by long term care social worker(workers comp) If IV antibiotics not approved, discharge with rx for Bactrim DS PO Patient stable from podiatry point of view; Patient will follow up with Dr Ronquillo, pt to make an appointment the day of discharge to schedule follow up Podiatry will continue to follow patient while in house
[2017-09-23] MEDS: Enoxaparin 40 mg Syringe SC SCH (09:00)
[2017-09-23] MEDS: Naproxen 500 MG TAB PO SCH ×2 (09:00→17:04)
--- NOTE | 2017-09-23 13:24 | CP.PCM.DIS ---
Provider - Provider Date of Admission: 09/21/17 11:56 Attending physician: Yaya Garcia MD Primary care physician: Boris Brush Consults: Podiatry: Dr Ronquillo ID: Dr Marques Time Spent in preparation of Discharge (in minutes): 25 Diagnosis - Discharge Diagnosis (1) Fever Status: Acute Comment: - Hospital Course - Lab Results Lab Results: Micro Results 09/21/17 02:45 Blood-Venous Blood Culture - Preliminary NO GROWTH AFTER 48 HOURS 09/21/17 02:55 Blood-Venous Blood Culture - Preliminary NO GROWTH AFTER 48 HOURS 09/21/17 01:53 Urine,Clean Catch Urine Culture - Final No Growth (<1,000 CFU/ML) Most Recent Lab Values WBC 5.1 K/uL (4.8-10.8) 09/22/17 05:55 RBC 5.03 Mil/uL (4.40-5.90) 09/22/17 05:55 Hgb 15.6 g/dL (12.0-18.0) 09/22/17 05:55 Hct 46.5 % (35.0-51.0) 09/22/17 05:55 MCV 92.4 fl (80.0-94.0) 09/22/17 05:55 MCH 31.1 pg (27.0-31.0) H 09/22/17 05:55 MCHC 33.7 g/dL (33.0-37.0) 09/22/17 05:55 RDW 13.9 % (11.5-14.5) 09/22/17 05:55 Plt Count 219 K/uL (130-400) 09/22/17 05:55 MPV 8.3 fl (7.2-11.7) 09/22/17 05:55 Neut % (Auto) 45.2 % (50.0-75.0) L 09/22/17 05:55 Lymph % (Auto) 34.0 % (20.0-40.0) 09/22/17 05:55 [place] % (Auto) 15.8 % (0.0-10.0) H 09/22/17 05:55 Eos % (Auto) 4.1 % (0.0-4.0) H 09/22/17 05:55 Baso % (Auto) 0.9 % (0.0-2.0) 09/22/17 05:55 Neut # (Auto) 2.3 K/uL (1.8-7.0) 09/22/17 05:55 Lymph # (Auto) 1.7 K/uL (1.0-4.3) 09/22/17 05:55 [place] # (Auto) 0.8 K/uL (0.0-0.8) 09/22/17 05:55 Eos # (Auto) 0.2 K/uL (0.0-0.7) 09/22/17 05:55 Baso # (Auto) 0.0 K/uL (0.0-0.2) 09/22/17 05:55 ESR 10 mm/hr (0-15) 09/22/17 05:55 pO2 34 mm/Hg (30-55) 09/20/17 23:03 VBG pH 7.39 (7.32-7.43) 09/20/17 23:03 VBG pCO2 47 mmHg (40-60) 09/20/17 23:03 VBG HCO3 26.2 mmol/L 09/20/17 23:03 VBG Total CO2 29.9 mmol/L (22-28) H 09/20/17 23:03 VBG O2 Sat (Calc) 66.5 % (40-65) H 09/20/17 23:03 VBG Base Excess 2.8 mmol/L (0.0-2.0) H 09/20/17 23:03 VBG Potassium 4.3 mmol/L (3.6-5.2) 09/20/17 23:03 Sodium 134.0 mmol/L (132-148) 09/20/17 23:03 Chloride 102.0 mmol/L (98-107) 09/20/17 23:03 Glucose 95 mg/dL (75-110) 09/20/17 23:03 Lactate 1.5 mmol/L (0.7-2.1) 09/20/17 23:03 FiO2 21.0 % 09/20/17 23:03 Sodium 140 mmol/l (132-148) 09/22/17 05:55 Potassium 4.4 MMOL/L (3.6-5.0) 09/22/17 05:55 Chloride 104 mmol/L (98-107) 09/22/17 05:55 Carbon Dioxide 27 mmol/L (22-30) 09/22/17 05:55 Anion Gap 13 (10-20) 09/22/17 05:55 BUN 17 mg/dl (9-20) 09/22/17 05:55 Creatinine 1.1 mg/dl (0.8-1.5) 09/22/17 05:55 Est GFR ( Amer) > 60 09/22/17 05:55 Est GFR (Non-Af Amer) > 60 09/22/17 05:55 Random Glucose 98 mg/dL (75-110) 09/22/17 05:55 Calcium 9.0 mg/dL (8.4-10.2) 09/22/17 05:55 Phosphorus 4.4 mg/dl (2.5-4.5) 09/22/17 05:55 Magnesium 2.0 MG/DL (1.6-2.3) 09/22/17 05:55 Total Bilirubin 0.7 mg/dl (0.2-1.3) 09/22/17 05:55 AST 35 U/L (17-59) 09/22/17 05:55 ALT 33 U/L (21-72) 09/22/17 05:55 Alkaline Phosphatase 58 U/L (38-126) 09/22/17 05:55 C-React Prot High Sens > 15.00 mg/L (1.00-3.00) H 09/22/17 05:55 Total Protein 6.4 G/DL (6.3-8.2) 09/22/17 05:55 Albumin 3.9 g/dL (3.5-5.0) 09/22/17 05:55 Globulin 2.5 gm/dL (2.2-3.9) 09/22/17 05:55 Albumin/Globulin Ratio 1.5 (1.0-2.1) 09/22/17 05:55 Triglycerides 107 mg/DL (0-149) 09/21/17 07:37 Cholesterol 162 mg/dL (0-199) 09/21/17 07:37 LDL Cholesterol Direct 95 mg/dL (0-129) 09/21/17 07:37 HDL Cholesterol 34 MG/DL (30-70) 09/21/17 07:37 Vitamin B12 620 pg/mL (239-931) 09/21/17 07:37 Procalcitonin < 0.05 NG/ML (0.19-0.49) L 09/21/17 11:32 TSH 3rd Generation 2.36 mIU/ML (0.46-4.68) 09/21/17 07:37 Venous Blood Potassium 4.3 mmol/L (3.6-5.2) 09/20/17 23:03 Urine Color Yellow (YELLOW) 09/21/17 00:34 Urine Clarity Clear (Clear) 09/21/17 00:34 Urine pH 8.0 (5.0-8.0) 09/21/17 00:34 Ur Specific [place] 1.013 (1.003-1.030) 09/21/17 00:34 Urine Protein Negative mg/dL (NEGATIVE) 09/21/17 00:34 Urine Glucose (UA) Neg mg/dL (Normal) 09/21/17 00:34 Urine Ketones Negative mg/dL (NEGATIVE) 09/21/17 00:34 Urine Blood Moderate (NEGATIVE) 09/21/17 00:34 Urine Nitrate Negative (NEGATIVE) 09/21/17 00:34 Urine Bilirubin Negative (NEGATIVE) 09/21/17 00:34 Urine Urobilinogen 0.2-1.0 mg/dL (0.2-1.0) 09/21/17 00:34 Ur Leukocyte Esterase Neg [place]/uL (Negative) 09/21/17 00:34 Urine RBC (Auto) 1 /hpf (0-3) 09/21/17 00:34 Urine Microscopic WBC < 1 /hpf (0-5) 09/21/17 00:34 Vancomycin Trough 8.0 ug/mL (5.0-10.0) 09/22/17 05:55 Discharge Exam - Head Exam Head Exam: ATRAUMATIC, NORMOCEPHALIC Discharge Plan - Follow Up Plan Condition: FAIR Disposition: HOME/ ROUTINE
--- NOTE | 2017-09-23 17:14 | CP.PCM.PN ---
Subjective - Date & Time of Evaluation Date of Evaluation: 09/23/17 Time of Evaluation: 11:00 - Subjective Subjective: 47 y/o M reports feeling well, with NO acute complains and wants to go home. Pt afebrile with NO acute events overnight. Pt denies chills, sweats, chest pain, SOB, N/V/D or calf tenderness. Objective - Vital Signs/Intake and Output Vital Signs (last 24 hours): Temp Pulse Resp BP Pulse Ox 99 F 75 18 117/71 97 09/23/17 17:04 09/23/17 17:04 09/23/17 17:04 09/23/17 17:04 09/23/17 17:04 - Medications Medications: Current Medications Cyclobenzaprine HCl (Flexeril) 10 mg PO Q8 [facility] Last Admin: 09/23/17 17:05 Dose: 10 mg Enoxaparin Sodium (Lovenox) 40 mg SC DAILY [facility] PRN Reason: Protocol Last Admin: 09/23/17 09:00 Dose: 40 mg Piperacillin Sod/Tazobactam (Sod 3.375 gm/ Sodium Chloride) 100 mls @ 100 mls/ hr IVPB Q8 [facility] PRN Reason: Protocol Last Admin: 09/23/17 17:01 Dose: 100 mls/hr Vancomycin HCl 1 gm/ Sodium (Chloride) 250 mls @ 166.667 mls/hr IVPB Q12 [facility] PRN Reason: Protocol Last Admin: 09/23/17 10:15 Dose: 166.667 mls/hr Lorazepam (Ativan) 1 mg PO BID PRN PRN Reason: Anxiety Morphine Sulfate (Morphine) 2 mg IVP Q4 PRN PRN Reason: severe pain (7-10) Last Admin: 09/23/17 14:40 Dose: 2 mg Naproxen (Naproxen) 500 mg PO BID [facility] Last Admin: 09/23/17 17:04 Dose: 500 mg Oxycodone/Acetaminophen (Percocet 5/325 Mg Tab) 2 tab PO Q6 PRN PRN Reason: Pain, moderate (4-7) Stop: 09/24/17 06:33 Last Admin: 09/22/17 09:12 Dose: 2 tab - Labs Labs: 09/22/17 05:55 09/22/17 05:55 - Constitutional Appears: Well, No Acute Distress - Head Exam Head Exam: ATRAUMATIC, NORMAL INSPECTION - Eye Exam Eye Exam: EOMI, Normal appearance, PERRL - ENT Exam ENT Exam: Mucous Membranes Moist - Neck Exam Neck Exam: Full ROM, Normal Inspection - Respiratory Exam Respiratory Exam: Clear to Ausculation Bilateral, NORMAL BREATHING PATTERN - Cardiovascular Exam Cardiovascular Exam: REGULAR RHYTHM, +S1, +S2 - GI/Abdominal Exam GI & Abdominal Exam: Soft, Normal Bowel Sounds. absent: Guarding, Tenderness - Extremities Exam Extremities Exam: absent: Calf Tenderness Additional comments: Left lower leg and foot in a cast, able to move toes, SILT with NO cyanosis. - Neurological Exam Neurological Exam: Alert, Awake, Oriented x3 Assessment and Plan (1) Fever Status: Acute - Assessment and Plan (Free Text) Assessment: 47 yo M S/P L ankle removal of hardware surgical procedure admitted for evaluation of high fever immediately after surgery, for 4-5 consecutive days even with use of Tylenol. --Stable, afebrile. --PICC line placed. Plan is to discharge pt with PICC line in place for IV antibiotics at home. --Awaiting approval from insurance for Iv antibiotics. --Follow Dr Marques for ultimate antibiotic recommendation that is covered by insurance. --ID, Dr Marques, on board. --Podiatry, Dr Ronquillo. --Regular diet. --Lovenox for DVT prophylaxis. --Rest of plan as ordered. --Planning to discharge later today if insurance approval obtained. Case discussed with Dr Radha Aguirre PGY-2 Family Medicine
[2017-09-24] MEDS: Piperacillin/Tazobact 3.375 GM in Sodium Chloride 0.9% 100 ML IVPB SCH ×3 (00:33→16:48)
[2017-09-24] MEDS: Naproxen 500 MG TAB PO SCH ×2 (08:33→16:49)
[2017-09-24] MEDS: Enoxaparin 40 mg Syringe SC SCH (08:34)
[2017-09-24 16:26] VITALS: BP 127/71; PULSE 73; RESP 20; TEMP 98.6; O2SAT 98
--- NOTE | 2017-09-24 18:24 | CP.PCM.PN ---
Subjective - Date & Time of Evaluation Date of Evaluation: 09/24/17 Time of Evaluation: 16:21 - Subjective Subjective: Podiatry progress note for Dr. Ronquillo: 47 yo male patient seen and evaluated at bedside 8 days s/p left ankle removal of hardware. Patient states he is feeling better today and would like to go home. His posterior splint is C/D/I and he continues to remain NWB to left lower extremity. Patient states that he has an appointment in Dr. Ronquillo's office this coming Tuesday for a post-op visit. Patient denies N/V/F/SOB/CP. Objective - Vital Signs/Intake and Output Vital Signs (last 24 hours): Temp Pulse Resp BP Pulse Ox 98.6 F 73 20 127/71 98 09/24/17 16:26 09/24/17 16:26 09/24/17 16:26 09/24/17 16:26 09/24/17 16:26 - Medications Medications: Current Medications Acetaminophen (Tylenol 325mg Tab) 650 mg PO Q4 PRN PRN Reason: Headache Last Admin: 09/23/17 20:03 Dose: 650 mg Cyclobenzaprine HCl (Flexeril) 10 mg PO Q8 [facility] Last Admin: 09/24/17 16:49 Dose: 10 mg Enoxaparin Sodium (Lovenox) 40 mg SC DAILY [facility] PRN Reason: Protocol Last Admin: 09/24/17 08:34 Dose: 40 mg Piperacillin Sod/Tazobactam (Sod 3.375 gm/ Sodium Chloride) 100 mls @ 100 mls/ hr IVPB Q8 [facility] PRN Reason: Protocol Last Admin: 09/24/17 16:48 Dose: 100 mls/hr Vancomycin HCl 1 gm/ Sodium (Chloride) 250 mls @ 166.667 mls/hr IVPB Q12 [facility] PRN Reason: Protocol Last Admin: 09/24/17 10:48 Dose: 166.667 mls/hr Lorazepam (Ativan) 1 mg PO BID PRN PRN Reason: Anxiety Morphine Sulfate (Morphine) 2 mg IVP Q4 PRN PRN Reason: severe pain (7-10) Last Admin: 09/24/17 15:08 Dose: 2 mg Naproxen (Naproxen) 500 mg PO BID [facility] Last Admin: 08/18/18 16:49 Dose: 500 mg - Labs Labs: 09/22/17 05:55 09/22/17 05:55 - Constitutional Appears: Well, Non-toxic, No Acute Distress - Head Exam Head Exam: ATRAUMATIC, NORMOCEPHALIC - Extremities Exam Additional comments: LLE focused exam: Vasc: DP 2/4, PT 1/4. Cap refill < 3 sec in all digits. Temp gradient warm to warm. Mild edema noted to medial and lateral malleoloar region- edema resolving Neuro: Gross and protective sensation intact Derm: Surgical site intact to left medial and lateral ankle. Steri strips in place and intact. Skin edges well coapted, no dehiscence, no malodor, no erythema, no drainage, no erythema, no purulence, no clinical signs of infection. Ortho: No tenderness or pain upon palpation of the medial and lateral areas of surgical site. MMT 5/5 in all compartments. - Neurological Exam Neurological Exam: Alert, Awake, Oriented x3 - Psychiatric Exam Psychiatric exam: Normal Affect, Normal Mood Assessment and Plan - Assessment and Plan (Free Text) Assessment: 47 yo male patient seen and evaluated with Dr. Ronquillo 8 days s/p hardware removal of the left ankle. Plan: Patient seen and evaluated at bedside Dr. Ronquillo, all patient questions and concerns addressed Chart, vitals, and labs reviewed; afebrile and absent leukocytosis (09/24) Posterior splint removed to assess surgical site Surgical site dressed with sterile DSD and Kerlix, posterior splint reapplied to left lower extremity Continue to remain NWB with crutches to left lower extremity Venous duplex ordered and reviewed: no evidence of DVT Per mangia, PICC line placed, IV antibiotics for a week once approved by insurance If IV antibiotics not approved, discharge with rx for Bactrim DS PO Patient stable from podiatry point of view; there continues to be no evidence of any sign of infection from surgical site Patient will follow up with Dr Ronquillo on Tuesday with existing appointmen
--- NOTE | 2017-09-24 23:45 | CP.PCM.PCO ---
Against Medical Advice - AMA Patient Left Against Medical Advice: The patient declines admission to the hospital and wishes to leave the Hospital. This action is against my medical advice. This decision was made with informed refusal. The patient was told that admission to the hospital is necessary. Explanation of the reasons why were discussed. The risks of leaving were explained to the patient and include, but are not limited to, worsening of known or currently unknown conditions, permanent disability and from undiagnosed or untreated conditions. The patient has the capacity to make this informed decision and understands my explanation of the current medical problem and risks of leaving. The patient voluntarily accepts these risks and signed an AMA form documenting our conversation. The patient was given the opportunity to ask questions and reconsider. The patient was encouraged to return to the Emergency Department at any time for further care. Assessment & Plan - Assessment and Plan (Free Text) Assessment: This resident was paged to see patient and sign AMA form at 11:05 PM. I arrived at the bedside, at 11:08 and explained to about about the necessity of continual care in the hospital. Risks of leaving AMA were explained to patient including but not limited to osteomylitis, worsening infection, sepsis, and even . Patient understands the risk and benefits and wanted to leave as soon as possible. Spoke to PMD who also tried to convince patient to stay for further treatment, pt refused. Subsequently, PICC line was removed from R arm without any event. Pt refused to sign AMA form and left.
== END 2017-09-24 23:35 | disposition left against medical advice (07) | DRG 864 ==
LOC: H.ER 21:57 → H.ERHOLD 09-21 01:46 → H.MEDSURG1 09-21 04:30 → OBSVTOIN 09-21 11:56
PROVIDERS: ADMIT Family Medicine; ATTEND Family Medicine
PROC: 02HV33Z Insertion of Infusion Device into Superior Vena Cava, Percutaneous Approach (ICD-10-PCS; principal; 2017-09-22)
DX: R50.82 Postprocedural fever (principal); F41.9 Anxiety disorder, unspecified; J44.9 Chronic obstructive pulmonary disease, unspecified; M10.9 Gout, unspecified; Z85.09 Personal history of malignant neoplasm of other digestive organs; S82.892D Other fracture of left lower leg, subsequent encounter for closed fracture with routine healing; X58.XXXD Exposure to other specified factors, subsequent encounter; S82.202D Unspecified fracture of shaft of left tibia, subsequent encounter for closed fracture with routine healing; S82.402D Unspecified fracture of shaft of left fibula, subsequent encounter for closed fracture with routine healing

== ENCOUNTER 2018-02-07 02:13 | Observation (INO) | payer OTHER ==
[2018-02-07 02:13] VITALS: BMI 29.2
[2018-02-07] MEDS ORDERED: Iohexol 240 (50 ml) PO ONE (03:15)
[2018-02-07] MEDS ORDERED: Morphine 4 MG/ML VIAL IV ONE ×2 (03:26→05:33)
[2018-02-07] MEDS ORDERED: Sodium Chloride 0.9% 1,000 ML IV STA (03:26)
[2018-02-07] MEDS ORDERED: Iohexol 240 (50 ml) ONE (03:34)
[2018-02-07] MEDS ORDERED: Morphine 4 MG/ML VIAL ONE ×2 (03:34→05:52)
--- NOTE | 2018-02-07 03:35 | ED PDOC ---
HPI: Abdomen Time Seen by Provider: 02/07/18 02:30 Chief Complaint (Nursing): Abdominal Pain Chief Complaint (Provider): Abdominal Pain History Per: Patient History/Exam Limitations: no limitations Onset/Duration Of Symptoms: Hrs Current Symptoms Are (Timing): Still Present Additional Complaint(s): Patient is a 47 y/o male with a PMHx of anxiety, COPD, fractures, and g allbladder CA who presents to the ED for evaluation acute abdominal pain. Patient states he was eating pizza at 20:00 today when he felt severe pain in his abdomen. Patient reports a normal bowel movement today with no constipation. In addition, patient declines fever or vomiting. 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 He also reports a history of multiple orthopedic surgeries. Past Medical History Reviewed: Historical Data, Nursing Documentation, Vital Signs Vital Signs: Last Vital Signs Temp 98.1 F 02/07/18 02:59 Pulse 82 02/07/18 02:59 Resp 16 02/07/18 02:59 BP 129/79 02/07/18 02:59 Pulse Ox 98 02/07/18 02:59 - Medical History PMH: Anxiety, COPD (from 10/18 work), Fractures (left ankle, left tibia/fibula) Denies: Chronic Kidney Disease Other PMH: Stage 1 Gallbladder CA - Surgical History Surgical History: Cholecystectomy, Tonsillectomy - Family History Family History: States: CAD - Social History Current smoker - smoking cessation education provided: No Alcohol: None Drugs: Denies - Home Medications Home Medications: Ambulatory Orders Medication Instructions Recorded RX: No Known Home Med 02/07/18 - Allergies Allergies/Adverse Reactions: Allergies Allergy/AdvReac Type Severity Reaction Status Date / Time No Known Allergies Allergy Verified 02/07/18 02:59 Review of Systems ROS Statement: Except As Marked, All Systems Reviewed And Found Negative Constitutional: Negative for: Fever Gastrointestinal: Positive for: Abdominal Pain (Severe, Acute). Negative for: Vomiting, Constipation Genitourinary Male: Negative for: Dysuria, Hematuria Physical Exam - Reviewed Nursing Documentation Reviewed: Yes Vital Signs Reviewed: Yes - Physical Exam Appears: Positive for: No Acute Distress Head Exam: Positive for: ATRAUMATIC, NORMAL INSPECTION, NORMOCEPHALIC Skin: Positive for: Normal Color Eye Exam: Positive for: Normal appearance Neck: Positive for: Normal Cardiovascular/Chest: Positive for: Regular Rate, Rhythm Respiratory: Positive for: Normal Breath Sounds Gastrointestinal/Abdominal: Positive for: Tenderness (Diffuse Abd) Extremity: Positive for: Normal ROM (Upper/Lower) Neurologic/Psych: Positive for: Alert, Oriented - Laboratory Results Result Diagrams: 02/07/18 03:18 02/07/18 03:18 - ECG O2 Sat by Pulse Oximetry: 98 (RA) Pulse Ox Interpretation: Normal Medical Decision Making Medical Decision Making: Time: 031 Plan: abdominal pain, rule out appendicitis, diverticulitis CT Abd/Pelvis w/ IV Contrast CMP Lipase CBC Morphine 4 mg IV IV Fluids [Omnipaque 240 (50ML)] 50 ml PO Zofran Inj 4 mg IV Urine C&S UA Time: 0457 -- Labs reviewed and demonstrate an elevated WBC count. Time: 0700 -- Patient endorsed to Dr. Hart, pending ER workup, CT and final ER disposition. Scribe Attestation: Documented by Wilfrid Carpio acting as a scribe for Hue Marie MD. Provider Scribe Attestation: All medical record entries made by the Scribe were at my direction and personally dictated by me. I have reviewed the chart and agree that the record accurately reflects my personal performance of the history, physical exam, medical decision making, and the department course for this patient. I have also personally directed, reviewed, and agree with the discharge instructions and disposition. Disposition - Clinical Impression Clinical Impression: Abdominal discomfort, Abdominal pain - Patient ED Disposition Is Patient to be Admitted: Transfer of Care - Disposition Disposition: Transfer of Care Disposition Time: 07:00 Condition: FAIR Patient Signed Over To: Yue Hart Handoff Comments: pending ER workup, CT and final ER disposition.
[2018-02-07 03:36] LABS: BASO % 0.3 % (0.0-2.0); EOS # 0.2 K/uL (0.0-0.7); EOS % 1.4 % (0.0-4.0); HEMOGLOBIN 14.1 g/dL (12.0-18.0); LYMPH # 2.5 K/uL (1.0-4.3); LYMPH % 18.1 % (20.0-40.0); MEAN CELL VOLUME 94.8 fl (80.0-94.0); MEAN CORPUSCULAR HEMOGLOBIN 31.1 pg (27.0-31.0); MEAN CORPUSCULAR HGB CONC 32.8 g/dL (33.0-37.0); MEAN PLATELET VOLUME 8.4 fl (7.2-11.7); MONO # 0.8 K/uL (0.0-0.8); MONO % 6.1 % (0.0-10.0); NEUT # 10.1 K/uL (1.8-7.0); NEUT % 74.1 % (50.0-75.0); NRBC % 0.1 % (0.0-0.0); RBC 4.53 Mil/uL (4.40-5.90); RED CELL DISTRIBUTION WIDTH 13.5 % (11.5-14.5); WHITE BLOOD COUNT 13.7 K/uL (4.8-10.8)
[2018-02-07 03:47] LABS: ALB/GLOB RATIO 1.5 (1.0-2.1); ALBUMIN 4.5 g/dL (3.5-5.0); ALT/SGPT 33 U/L (21-72); AST/SGOT 34 U/L (17-59); BLOOD UREA NITROGEN 19 mg/dl (9-20); CALCIUM 9.6 mg/dL (8.4-10.2); GFR NON-AFRICAN AMERICAN > 60; LIPASE 216 U/L (23-300)
[2018-02-07 05:59] LABS: URINE BILIRUBIN NEGATIVE (NEGATIVE); URINE BLOOD NEGATIVE (NEGATIVE); URINE CLARITY CLEAR (Clear); URINE COLOR STRAW (YELLOW); URINE GLUCOSE (UA) NEG (NEGATIVE); URINE LEUKOCYTE ESTERASE NEG Leu/uL (Negative); URINE PROTEIN NEGATIVE (NEGATIVE); URINE UROBILINOGEN 0.2-1.0 mg/dL (0.2-1.0)
--- NOTE | 2018-02-07 07:37 | ED PDOC ---
- Laboratory Results Result Diagrams: 02/07/18 03:18 02/07/18 03:18 - ECG O2 Sat by Pulse Oximetry: 98 (RA) Medical Decision Making Medical Decision Making: Time: 0700 --Patient endorsed to provider by Dr. Marie, pending ED work-up, CT results, and final disposition. Time: 930 --CT ABD/pelvis FINDINGS: LOWER THORAX: Unremarkable. LIVER: No gross hepatic lesion or ductal dilatation. Mild fatty hepatic infiltration. GALLBLADDER AND BILE DUCTS: Cholecystectomy PANCREAS: Unremarkable. No gross lesion or ductal dilatation. SPLEEN: Unremarkable. ADRENALS: Unremarkable. No mass. KIDNEYS AND URETERS: Unremarkable. No hydronephrosis. No solid mass. VASCULATURE: Unremarkable. No aortic aneurysm. No aortic atherosclerotic calcification or mural plaque present. BOWEL: Unremarkable. No obstruction. No gross mural thickening. Scattered colonic diverticula however no radiographic evidence of acute diverticulitis. APPENDIX: Normal appendix PERITONEUM: Unremarkable. No free fluid. No free air. Small bilateral fat containing ing uinal hernias right larger than left. LYMPH NODES: Unremarkable. No enlarged lymph nodes. BLADDER: Bladder incompletely distended with thick-walled appearance. Muscular hypertrophy may contribute however possibility of a cystitis or other intrinsic/invasive wall lesion not excluded. REPRODUCTIVE: Prostate gland measures approximately 3.7 cm in transverse dimension. BONES: No acute fracture. OTHER FINDINGS: None. IMPRESSION: Cholecystectomy. Diverticulosis without radiographic evidence of acute diverticulitis. No acute intra abdominal pathology. Scribe Attestation: Documented by Keke Pop, acting as a scribe for Yue Hart MD. Provider Scribe Attestation: All medical record entries made by the Scribe were at my direction and personally dictated by me. I have reviewed the chart and agree that the record accurately reflects my personal performance of the history, physical exam, medical decision making, and the department course for this patient. I have also personally directed, reviewed, and agree with the discharge instructions and disposition. 10.45a - CT abdomen results noted and discussed with Dr. Garcia. Patient is still distended and tender despite morphine earlier and Toradol after transfer of care. Dr. Garcia okay with observation admit with IV antibiotics. Disposition Doctor Will See Patient In The: Hospital - Clinical Impression Clinical Impression: Abdominal discomfort, Abdominal pain - POA Present On Arrival: None - Disposition Disposition: Transfer of Care Disposition Time: 10:45 Condition: FAIR Forms: [facility] (I[place]ic)
[2018-02-07] MEDS ORDERED: Iohexol 300 100 ML IJ ONE (08:29)
[2018-02-07] MEDS ORDERED: Sodium Chloride 0.9% 50 ML IV ONE (08:29)
--- NOTE | 2018-02-07 09:34 | CT ---
Date of service: 02/07/2018 PROCEDURE: CT Abdomen and Pelvis with contrast HISTORY: abd pain, diffuse COMPARISON: None. TECHNIQUE: Contrast dose: Radiation dose: Total exam DLP = 750.42 mGy-cm. This CT exam was performed using one or more of the following dose reduction techniques: Automated exposure control, adjustment of the mA and/or kV according to patient size, and/or use of iterative reconstruction technique. FINDINGS: LOWER THORAX: Unremarkable. LIVER: No gross hepatic lesion or ductal dilatation. Mild fatty hepatic infiltration. GALLBLADDER AND BILE DUCTS: Cholecystectomy PANCREAS: Unremarkable. No gross lesion or ductal dilatation. SPLEEN: Unremarkable. ADRENALS: Unremarkable. No mass. KIDNEYS AND URETERS: Unremarkable. No hydronephrosis. No solid mass. VASCULATURE: Unremarkable. No aortic aneurysm. No aortic atherosclerotic calcification or mural plaque present. BOWEL: Unremarkable. No obstruction. No gross mural thickening. Scattered colonic diverticula however no radiographic evidence of acute diverticulitis. APPENDIX: Normal appendix PERITONEUM: Unremarkable. No free fluid. No free air. Small bilateral fat containing inguinal hernias right larger than left. LYMPH NODES: Unremarkable. No enlarged lymph nodes. BLADDER: Bladder incompletely distended with thick-walled appearance. Muscular hypertrophy may contribute however possibility of a cystitis or other intrinsic/invasive wall lesion not excluded. REPRODUCTIVE: Prostate gland measures approximately 3.7 cm in transverse dimension. BONES: No acute fracture. OTHER FINDINGS: None. IMPRESSION: Cholecystectomy. Diverticulosis without radiographic evidence of acute diverticulitis. No acute intra abdominal pathology.
--- NOTE | 2018-02-07 12:21 | US ---
Date of service: 02/07/2018 HISTORY: Diffuse abdominal pain. COMPARISON: Comparison made with CT concurrent CT scan of the abdomen and pelvis as well as prior abdominal ultrasound dated 02/17/2010 TECHNIQUE: Sonographic evaluation of the abdomen. FINDINGS: LIVER: Measures 14.4 cm. Mild fatty infiltration... No mass. No intrahepatic bile duct dilatation. GALLBLADDER: Cholecystectomy. COMMON BILE DUCT: Measures 4.8 mm. No stones. No dilatation. PANCREAS: Unremarkable as visualized. No mass. No ductal dilatation. RIGHT KIDNEY: Measures 13.0 x 5.8 x 4.3cm. Normal echogenicity. No calculus, mass, or hydronephrosis. LEFT KIDNEY: Measures 10.3 x 5.8 x 6.8 cm. Normal echogenicity. No calculus, mass, or hydronephrosis. SPLEEN: Normal in size and contour. No mass. Spleen measures approximately 9.1 cm in greatest dimension AORTA: No aneurysmal dilatation. IVC: Unremarkable. OTHER FINDINGS: None. IMPRESSION: Cholecystectomy. Mild fatty hepatic infiltration. Otherwise unremarkable abdominal sonogram.
[2018-02-07] MEDS: Dextrose 5%/Lactated Ringer's 1,000 ML IV SCH ×2 (15:32→21:00)
[2018-02-07] MEDS: metroNIDAZOLE 500mg/100ml NS 100 ML IVPB SCH (17:25)
[2018-02-07] MEDS: Morphine 4 MG/ML VIAL IVP PRN (20:05)
[2018-02-07] MEDS: Ciprofloxacin 400mg/200ml D5W 400 MG/200 ML BAG IVPB SCH (20:09)
[2018-02-08] MEDS: metroNIDAZOLE 500mg/100ml NS 100 ML IVPB SCH ×3 (01:04→17:49)
[2018-02-08] MEDS: Morphine 4 MG/ML VIAL IVP PRN (05:26)
[2018-02-08] MEDS: Dextrose 5%/Lactated Ringer's 1,000 ML IV SCH (05:29)
[2018-02-08 07:35] LABS: HEMOGLOBIN 13.6 g/dL (12.0-18.0); MEAN CELL VOLUME 93.3 fl (80.0-94.0); MEAN CORPUSCULAR HEMOGLOBIN 31.2 pg (27.0-31.0); MEAN CORPUSCULAR HGB CONC 33.4 g/dL (33.0-37.0); RBC 4.37 Mil/uL (4.40-5.90); RED CELL DISTRIBUTION WIDTH 13.2 % (11.5-14.5); WHITE BLOOD COUNT 6.2 K/uL (4.8-10.8)
[2018-02-08 07:40] LABS: ALB/GLOB RATIO 1.5 (1.0-2.1); ALBUMIN 3.9 g/dL (3.5-5.0); ALT/SGPT 49 U/L (21-72); AST/SGOT 33 U/L (17-59); BLOOD UREA NITROGEN 9 mg/dl (9-20); GFR NON-AFRICAN AMERICAN > 60; LIPASE 90 U/L (23-300)
[2018-02-08 08:38] VITALS: PULSE 65; O2SAT 99
[2018-02-08] MEDS: Ciprofloxacin 400mg/200ml D5W 400 MG/200 ML BAG IVPB SCH (09:06)
[2018-02-08] MEDS: Sucralfate 1 gm/10 ml Oral Susp UD PO SCH ×3 (09:07→17:41)
[2018-02-08] MEDS ORDERED: Lactulose 10 gm/15 ml Syrup PO ONE ×2 (14:55→15:25)
[2018-02-08] MEDS ORDERED: Lactulose 10 gm/15 ml Syrup PO PRN (15:10)
[2018-02-08] MEDS ORDERED: Chlorhexidine Gluconate 1 APPL/PKT TP ONE (15:32)
[2018-02-08 18:21] VITALS: BP 107/70; RESP 20; TEMP 97.8
== END 2018-02-08 20:48 | disposition home or self-care (01) ==
LOC: H.ER 02:13 → H.ERHOLD 11:06 → H.MEDSURG1 12:11
PROVIDERS: ADMIT Family Medicine; ATTEND Family Medicine
DX: R10.9 Unspecified abdominal pain (principal); F41.9 Anxiety disorder, unspecified; K57.30 Diverticulosis of large intestine without perforation or abscess without bleeding; J44.9 Chronic obstructive pulmonary disease, unspecified; Z85.09 Personal history of malignant neoplasm of other digestive organs
CPT/HCPCS: 36415; 74177; 76700; 80053; 81003; 83690; 85025; 85027; 87086; 99285; C9113; G0378; J0744; J1885; J2270; J2405; J7030; J7120; Q9966; Q9967